=== PATIENT | female | born 1980 | race Caucasian/White ===

== ENCOUNTER 2017-08-09 04:16 | Inpatient (IN) | payer OTHER ==
[~2017-08-09] VITALS: Ht 165.1 cm; Wt 66.8 kg
[2017-08-09] MEDS ORDERED: ONDANSETRON 4 MG INJ IV STA (04:58)
[2017-08-09] MEDS ORDERED: morphine 4 MG/ML VIAL IV STA ×2 (04:58→08:26)
[2017-08-09] MEDS ORDERED: SOD CHLORIDE 0.9% 1,000 ML IV STA ×2 (04:58→06:56)
--- NOTE | 2017-08-09 05:21 | ERD ---
ER Documentation Chief Complaint Date/Time DATE: 08/09/17 TIME: 05:17 Chief Complaint SAMAN pelvic pain x 3 days. No vaginal bleeding/discharge HPI This is a 37-year-old female presenting to emergency department with pelvic pain 3 days. Patient has recent history of an ovarian torsion and had 1 of her fallopian tubes removed in February 2017. Patient states in April 2017 she had an infection of her incision and had to have an abscess drained surgically. Patient now is having severe pelvic pain. No vaginal bleeding or discharge. Patient has had nausea however no vomiting. Patient has had some diarrhea and constipation. Patient rates pain 7/10 to suprapubic area and states she feels "bloated." Patient denies fever or chills. Last menstrual period was last week. Patient had her surgery at [facility] and is supposed to follow-up with surgeon there. ROS All systems reviewed and are negative except as per history of present illness. Medications Home Meds Reported Medications Metformin Hcl* (Metformin Hcl*) 850 Mg Tablet, 850 MG PO WITH BREAKFAST DINNE, # 30 TAB 08/09/17 Allergies Allergies: Coded Allergies: No Known Allergy (Unverified , 08/09/17) PMhx/Soc ovarian torsion History of Surgery: Yes Physical Exam Vitals Vital Signs Date Time Temp Pulse Resp B/P Pulse Ox O2 Delivery O2 Flow Rate FiO2 08/09/17 10:50 89 18 122/92 99 Room Air 08/09/17 08:27 98.6 96 18 151/92 99 Room Air 08/09/17 04:30 98.0 122 18 163/88 98 Physical Exam Const: Alert, writhing in pain Head: Atraumatic Eyes: Normal Conjunctiva ENT: Normal External Ears, Nose and Mouth. Neck: Full range of motion..~ No meningismus. Resp: Clear to auscultation bilaterally Cardio: Regular rate and rhythm, no murmurs Abd: Soft, non distended. Normal bowel sounds, Suprapubic tenderness Skin: No petechiae or rashes Back: No midline or flank tenderness Ext: No cyanosis, or edema Neur: Awake and alert Psych: Normal Mood and Affect Result Diagram: 08/09/17 0539 08/09/17 0539 Results 24 hrs Laboratory Tests Test 08/09/17 05:15 08/09/17 05:39 08/09/17 07:18 08/09/17 08:38 Urine Color STRAW Urine Clarity CLEAR Urine pH 6.0 Urine Specific [place] 1.030 Urine Ketones NEGATIVEmg/dL Urine Nitrite NEGATIVEmg/dL Urine Bilirubin NEGATIVEmg/dL Urine Urobilinogen NEGATIVEmg/dL Urine Leukocyte Esterase NEGATIVELeu/ul Urine Microscopic RBC 8/HPF Urine Microscopic WBC 1/HPF Urine Hemoglobin 2+mg/dL Urine Glucose 3+mg/dL Urine Total Protein 2+mg/dl White Blood Count 9.610^3/ul Red Blood Count 4.2610^6/ul Hemoglobin 11.4g/dl Hematocrit 35.0% Mean Corpuscular Volume 82.2fl Mean Corpuscular Hemoglobin 26.8pg Mean Corpuscular Hemoglobin Concent 32.6g/dl Red Cell Distribution Width 11.9% Platelet Count 51241^3/UL Mean Platelet Volume 10.2fl Neutrophils % 78.7% Lymphocytes % 12.7% Monocytes % 6.0% Eosinophils % 1.4% Basophils % 0.5% Nucleated Red Blood Cells % 0.0/100WBC Neutrophils # (Manual) 7.510^3/ul Lymphocytes # 1.210^3/ul Monocytes # 0.610^3/ul Eosinophils # 0.110^3/ul Basophils # 0.110^3/ul Nucleated Red Blood Cells # 0.010^3/ul Sodium Level 135mmol/L Potassium Level 4.7mmol/L Chloride Level 98mmol/L Carbon Dioxide Level 26mmol/L Anion Gap 16 Blood Urea Nitrogen 29mg/dl Creatinine 1.00mg/dl Glucose Level 474mg/dl Calcium Level 9.9mg/dl Total Bilirubin 0.0mg/dl Direct Bilirubin 0.00mg/dl Indirect Bilirubin 0.0mg/dl Aspartate Amino Transf (AST/SGOT) 40IU/L Alanine Aminotransferase (ALT/SGPT) 44IU/L Alkaline Phosphatase 134IU/L Total Protein 7.7g/dl Albumin 3.9g/dl Globulin 3.80g/dl Albumin/Globulin Ratio 1.02 Lipase 158U/L Bedside Glucose 327mg/dL 378mg/dL Current Medications Medications (Trade) Dose Ordered Sig/Eliazar Route PRN Reason Start Time Stop Time Status Last Admin Dose Admin Sodium Chloride (NS) 1,000 ml @ 1,000 mls/hr Q1H STAT IV 08/09/17 04:58 08/09/17 05:57 DC 08/09/17 05:50 Morphine Sulfate (morphine) 4 mg ONCE STAT IV 08/09/17 04:58 08/09/17 05:01 DC 08/09/17 05:49 Ondansetron HCl 4 mg 4 mg ONCE STAT IV 08/09/17 04:58 08/09/17 05:01 DC 08/09/17 05:49 Sodium Chloride (NS) 1,000 ml @ 1,000 mls/hr Q1H STAT IV 08/09/17 06:56 08/09/17 07:55 DC 08/09/17 07:27 Insulin Human Regular 10 unit 10 unit ONCE ONCE SC 08/09/17 07:00 08/09/17 07:01 DC 08/09/17 07:38 Sodium Chloride (NS) 100 ml @ ud STK-MED ONCE .ROUTE 08/09/17 07:08 08/09/17 07:09 DC 08/09/17 07:53 Iohexol (Omnipaque 300mg/ ml) 150 ml STK-MED ONCE .ROUTE 08/09/17 07:08 08/09/17 07:09 DC 08/09/17 07:54 Morphine Sulfate (morphine) 4 mg ONCE STAT IV 08/09/17 08:26 08/09/17 08:28 DC 08/09/17 08:30 Ondansetron HCl (Zofran Inj) 4 mg BRIDGE ORDER PRN IV NAUSEA AND/OR VOMITING 08/09/17 11:00 08/09/17 12:17 DC Acetaminophen (Tylenol Tab) 650 mg ER BRIDGE PRN PO MILD PAIN/FEVER 08/09/17 11:00 08/09/17 12:17 DC Procedures/MDM MDM: This is a 37-year-old female presenting to emergency department with pelvic pain for the past 3 days. Patient has history of ovarian torsion and removal of fallopian tube in February 2017. Patient states she is having similar pain. Patient denies fever or chills. Patient rates pain 7/10 to suprapubic region. IV access obtained and labs drawn. Patient given morphine 4 mg and Zofran 4 mg IV. Patient given 1 L IV fluid bolus of normal saline. Patient signed out to Kin Sexton PA-C pending CT, ultrasound and lab results. Departure Diagnosis: Primary Impression: Acute pain in female pelvis Condition: Stable FELICE,LAYO R. PROMOTIONAL ADVERTISING ASSISTANT Aug 09, 2017 05:20
[2017-08-09 06:03] LABS: BASOPHIL # 0.1 10^3/ul (0.0-0.1); BASOPHILS % 0.5 % (0.0-2.0); EOSINOPHILS # 0.1 10^3/ul (0.0-0.5); EOSINOPHILS % 1.4 % (0.0-7.0); HEMOGLOBIN 11.4 g/dl (12.0-16.0); LYMPHOCYTES # 1.2 10^3/ul (0.8-2.9); LYMPHOCYTES % 12.7 % (15.0-51.0); MEAN CORPUSCULAR HEMOGLOBIN 26.8 pg (29.0-33.0); MEAN CORPUSCULAR HGB CONC 32.6 g/dl (32.0-37.0); MEAN CORPUSCULAR VOLUME 82.2 fl (82.0-101.0); MEAN PLATELET VOLUME 10.2 fl (7.4-10.4); MONOCYTE # 0.6 10^3/ul (0.3-0.9); NEUTROPHILS % 78.7 % (39.0-77.0); PLATELET COUNT 433 10^3/UL (140-415); RED BLOOD COUNT 4.26 10^6/ul (4.20-5.40); RED CELL DISTRIBUTION WIDTH 11.9 % (11.5-14.5); WHITE BLOOD COUNT 9.6 10^3/ul (4.8-10.8)
[2017-08-09 06:16] LABS: ADD UMIC YES; UR ASCORBIC ACID NEGATIVE (NEGATIVE); UR BILIRUBIN (Dip) NEGATIVE (NEGATIVE); UR BLOOD (Dip) 2+ mg/dL (NEGATIVE); UR CLARITY CLEAR (CLEAR); UR COLOR STRAW (YELLOW); UR GLUCOSE (Dip) 3+ mg/dL (NEGATIVE); UR KETONES (Dip) NEGATIVE (NEGATIVE); UR LEUKOCYTE ESTERASE (Dip) NEGATIVE Leu/ul (NEGATIVE); UR NITRITE (Dip) NEGATIVE (NEGATIVE); UR RBC 8 /HPF (0-5); UR TOTAL PROTEIN (Dip) 2+ mg/dl (NEGATIVE); UR UROBILINOGEN (Dip) NEGATIVE (NEGATIVE)
[2017-08-09 06:36] LABS: ALBUMIN 3.9 g/dl (3.3-4.9); ALBUMIN/GLOBULIN RATIO 1.02; CALCIUM 9.9 mg/dl (8.4-10.2); POTASSIUM 4.7 mmol/L (3.5-5.1); TOTAL PROTEIN 7.7 g/dl (6.1-8.1)
--- NOTE | 2017-08-09 06:39 | RADRPT ---
PROCEDURE: US Pelvis CLINICAL INDICATION: Pelvic pain. TECHNIQUE: Sonographic evaluation of the pelvis was performed utilizing both transabdominal and tr ansvaginal technique. Curved array transabdominal transducer technique as well as a high frequency endovaginal probe was utilized. Images were reviewed on the high-resolution PACS workstation. COMPARISON: No prior studies are available for comparison. FINDINGS: The uterus is normal in size, echogenicity, and morphology measuring 8.3 x 4.3 x 5.5 cm in dimension . The uterus is anteverted in normal position. The endometrium is normal for a menstrual age fema le measuring 11 mm in diameter. The right ovary measures 4.4 x 2.3 x 2.7 cm in dimension and demonstrates normal Doppler flow. There is 3.1 cm right paraovarian cyst. There is a fluid-filled distended tubular structure within the ri ght adnexa. The left ovary is not visualized. There is no significant free fluid in the pelvis. IMPRESSION: 1. Distended tubular structure within the right adnexa may reflect hydro or pyosalpinx. Clinical co rrelation required. 2. 3.1 cm right paraovarian cyst. 3. The left ovary is not visualized. 4. Unremarkable appearance of the uterus. RPTAT: HH .Daniela Ramires MD, Date Time Electronically viewed and signed by .Daniela Ramires MD, on 08/09/2017 06:38 .G/
[2017-08-09] MEDS ORDERED: INSULIN REGULAR, HUMAN 100 UNIT/1 ML 3ML VIAL SC ONE (07:00)
[2017-08-09] MEDS ORDERED: SOD CHLORIDE 0.9% 100 ML ONE (07:08)
[2017-08-09] MEDS ORDERED: IOHEXOL 300MG/ML 150 ML BTL ONE (07:08)
--- NOTE | 2017-08-09 08:04 | RADRPT ---
PROCEDURE: CT Abdomen and Pelvis with contrast. CLINICAL INDICATION: pelvic pain, hx of ovarian torsion TECHNIQUE: Routine abdominopelvic CT was performed following administration of intravenous contras t and reformatted in the axial, coronal, sagittal planes. Intravenous contrast: 85 cc of Omnipaque-300. Radiation dose: CTDIvol (mGy) = 6.4; total DLP (mGy-cm) = 377 One or more of the following radiation dose techniques were used: -Automated exposure control. -Adjust of the mA and/or kV according to patient size. -Use of iterative reconstruction technique. COMPARISON: Ascending ultrasound. FINDINGS: There is a rim enhancing loculated fluid collection identified in the anterior upper pelvis (6.7 cm) , demonstrating prominent surrounding inflammation. This finding is associated with a linear tract t hat is contiguous with the umbilicus. There is a tubular structure identified in the right adnexa, compatible with hydrosalpinx. Multiple cysts/follicles are identified in the bilateral ovaries. Liver, gallbladder, biliary system, pancreas, adrenal glands, and spleen are normal. Kidneys demonstrate symmetric enhanced without hydronephrosis or nephrolithiasis. There is a moderate amount of stool in the colon. Small bowel loops are normal in caliber and mural thickness. The No lymphadenopathy. IMPRESSION: Lobulated enhancing fluid collections identified superior to the urinary bladder, concerning for inf ection/abscess within a urachal remnant. Recommend aspiration/drainage under CT guidance. Right sided hydrosalpinx. RPTAT: EE .Hermes Torrez MD, MD Date Time Electronically viewed and signed by .Hermes Torrez MD, on 08/09/2017 08:09 .C/
--- NOTE | 2017-08-09 08:24 | QN ---
Documentation Comment S: This patient was brought to my attention by the PA. Briefly, this is a This is a 37-year-old female presenting to emergency department with pelvic pain 3 days. Patient has recent history of an ovarian torsion and had 1 of her fallopian tubes removed in February 2017. Patient states in April 2017 she had an infection of her incision and had to have an abscess drained surgically. Patient now is having severe pelvic pain. No vaginal bleeding or discharge. Patient has had nausea however no vomiting. Patient has had some diarrhea and constipation. Patient rates pain 7/10 to suprapubic area and states she feels "bloated." Patient denies fever chills. Last menstrual period was last week. Patient had her surgery at [facility] and is supposed to follow-up with surgeon there. The patient's review of systems, past medical history, past surgical history, medications are reviewed and are in the PA note. O: Patient is in mild distress secondary to pelvic pain, well-developed, well- nourished Normocephalic, atraumatic Moist mucous membranes Regular rate and rhythm, no murmurs, no rubs, no gallops Lungs are clear to auscultation bilaterally Significant tenderness to palpation of the lower quadrants of the abdomen, voluntary guarding, nondistended No focal deficits A/P: The patient's presenting with signs concerning for a recurrent abscess given her significant pain and her presentation. The patient's blood work was obtained and reviewed. The patient does not have leukocytosis and she is afebrile. However, if this is an abscess formation, it could be localized without a systemic response at this time. The patient does have mild anemia does not need to be emergently treated. The patient's CMP was unremarkable except for elevated glucose. The patient's initial sugar was over 400. She was given IV fluids in addition to 10 units of insulin. Unfortunately, her partner gave her burrito to eat, so her sugar has not quite come down. It is currently less than 400. We will continue IV fluids. She will be n.p.o. from here on out. The patient's urinalysis shows mild hematuria and glucose. There are no ketones. The patient has no anion gap. I do not suspect DKA. There is no convincing evidence of a UTI as etiology of her symptoms. The patient had a pelvic ultrasound that demonstrated the following: Pelvic US IMPRESSION: Distended tubular structure within the right adnexa may reflect hydro or pyosalpinx. Clinical correlation required. 3.1 cm right paraovarian cyst. The left ovary is not visualized. Unremarkable appearance of the uterus. Electronically viewed and signed by .Daniela Ramires MD, MD on 08/09/2017 06 :38 The patient had a subsequent CT scan that demonstrated the following: CT Abd/Pelvis IMPRESSION: Lobulated enhancing fluid collections identified superior to the urinary bladder, concerning for infection/abscess within a urachal remnant. Recommend aspiration/drainage under CT guidance. Right sided hydrosalpinx. Electronically viewed and signed by .Hermes Torrez MD, MD on 08/09/2017 08:09 The patient was given morphine in the emergency department for pain control. Given concerns of abscess formation, the patient will require admission to the hospital. She will likely require gynecologic consultation. She will be started on ciprofloxacin and Flagyl. CARLOS CARDOSO MD Aug 09, 2017 08:24
[2017-08-09 08:27] VITALS: TEMP 98.6
[2017-08-09] MEDS ORDERED: METF850T PO (08:58)
[2017-08-09] MEDS ORDERED: ACETAMINOPHEN 325 MG TAB PO PRN ×2 (11:00→12:30)
[2017-08-09] MEDS ORDERED: ONDANSETRON 4 MG INJ IV PRN (11:00)
[2017-08-09 11:45] VITALS: BP 116/73; PULSE 92; RESP 16
[2017-08-09 11:51] VITALS: Ht 165.1 cm; Wt 66.8 kg
[2017-08-09] MEDS ORDERED: NACL 0.9% 3 ML SYG IV SCH (12:30)
[2017-08-09] MEDS ORDERED: GLUCOSE GEL 15 GRAM TUBE PO PRN ×2 (12:30)
[2017-08-09] MEDS ORDERED: GLUCOSE GEL 15 GRAM TUBE BUCCAL PRN (12:30)
[2017-08-09] MEDS ORDERED: LORAZEPAM 2 MG INJ IV PRN (12:30)
[2017-08-09] MEDS ORDERED: GLUCAGON 1 MG INJ IM PRN (12:30)
[2017-08-09] MEDS ORDERED: hydrALAzine 20 MG INJ IV PRN (12:30)
[2017-08-09] MEDS ORDERED: NA PHOSPHATE/BIPHOS 133 ML ENEMA PR PRN (12:30)
[2017-08-09] MEDS ORDERED: ALBUTEROL/IPRATROPIUM (NEB) 3 ML AMP HHN PRN (12:30)
[2017-08-09] MEDS ORDERED: DOCUSATE SODIUM 100 MG CAP PO PRN (12:30)
[2017-08-09] MEDS ORDERED: NITROGLYCERIN (SL) 0.4 MG TAB SL PRN (12:30)
[2017-08-09] MEDS ORDERED: DEXTROSE 50% 50 ML SYRINGE IV PRN ×2 (12:30)
[2017-08-09] MEDS ORDERED: MAGNESIUM HYDROXIDE 30ML CUP PO PRN (12:30)
[2017-08-09] MEDS: SOD CHLORIDE 0.9% 1,000 ML IV SCH ×2 (13:06→22:30)
[2017-08-09] MEDS: PIPER-TAZO 3.375 GM IV (PMX) 100 ML IVPB SCH ×2 (13:06→17:08)
[2017-08-09] MEDS: PANTOPRAZOLE (EC) 40 MG TAB PO SCH (13:06)
[2017-08-09] MEDS: HEPARIN 5,000 UNIT/0.5 ML VIAL SC SCH ×2 (13:13→19:47)
[2017-08-09] MEDS: HYDROCODONE/APAP (5/325) TAB PO PRN ×2 (13:16→21:05)
[2017-08-09] MEDS: INSULIN ASPART [NOVOLOG] 3 ML PEN SC SCH ×3 (13:25→21:09)
--- NOTE | 2017-08-09 13:47 | HP ---
DATE OF ADMISSION: 08/09/2017 CHIEF COMPLAINT: This is a 37-year-old female with a chief complain of pelvic pain. HISTORY OF PRESENT ILLNESS: A 37-year-old female, past medical history of diabetes and prior ovarian torsion with fallopian tube removal earlier this year, as well as incision infection in April, status post I and D at [facility], who presents with pelvic pain occurring for the last 3 days. She has also had nausea symptoms. Denies any fevers or chills. No diarrhea. No constipation. No upper or lower GI bleeding. No vaginal discharge. No headaches or dizziness. No loss of consciousness. Apparently again she had a history of an ovarian torsion, had one of her fallopian tubes removed in February [address] [facility]. In April 2017 she had an infection of her incision and had to have an abscess drained surgically at [facility] at that time. She has been doing well again until presenting with the last 2 days of abdominal pain. Her white count was normal. Today no fevers but on her, imaging studies today, her CT abdomen and pelvis does show lobulated enhancing fluid collections identified superior to the urinary bladder, concerning for infection and abscess with within a urachal remnant. Recommend aspiration or drainage under CT guidance. Also right-sided hydrosalpinx and then there was this pelvic ultrasound that shows distended tubular structure within the right adnexa that may reflect hydro or pyosalpinx and there is a 3.1. Cm right paraovarian cyst. The OBGYN doctor was called to come evaluate the patient as well. PAST MEDICAL HISTORY: As above. ALLERGIES: NO KNOWN DRUG ALLERGIES. MEDICATIONS: Home medicines: Metformin 100 mg b.i.d.. PAST SURGICAL HISTORY: Fallopian tube removal surgery in February 2017 secondary to ovarian torsion. FAMILY HISTORY: Father has diabetes. SOCIAL HISTORY: She smokes a few cigarettes every day for the last 18 years. No IV drug abuse. No alcohol use. PHYSICAL EXAMINATION: VITAL SIGNS: T-max 98.6, pulse 89, 122, respirations 18, blood pressure is 163-122 systolic over 80-90s diastolic, satting 99 percent on room air. GENERAL: Patient lying in bed, complaining of right sided flank pain. Otherwise, no acute distress. HEENT: Pupils equal, round, and react to light. Neck is supple. Intact. NECK: Supple. No thyromegaly. LUNGS: Clear to auscultation bilaterally. CARDIOVASCULAR: S1, S2. No murmurs, rubs or gallops. ABDOMEN: Tender to palpation, right-sided flank. No rebound or guarding. Normal bowel sounds otherwise. MUSCULOSKELETAL: No lower extremity edema bilaterally. NEUROLOGIC: No focal deficits. LABORATORY: CBC is normal. Sodium 135, potassium 4.7, chloride 98, CO2 26, BUN 29, creatinine 1.0, glucose 474. LFTs are normal. Lipase is normal. UA shows negative nitrites, negative leukocyte esterase, but there is 2+ hemoglobin and we mentioned the imaging results above in the history of present illness. ASSESSMENT/PLAN: A 37-year-old, with pelvic pain for 3 days with findings of right adnexa hydrosalpinx and possible abscess and ovarian cyst. 1. Pelvic pain. Likely secondary to right adnexa hydrosalpinx or pyosalpinx. 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 Counseled on broad-spectrum antibiotics, IV fluids, antiemetics and pain control. Medications Tylenol p.r.n. pain and fevers. The patient may benefit from CT-guided drainage of this possible abscess versus just medical treatment at this time. Check A1c and TSH and lipid panel as well. 2. Diabetes. Put on sliding scale. Check A1c. 3. Gastrointestinal prophylaxis, proton pump inhibitor. 4. Deep vein thrombosis prophylaxis. Heparin subcu. Dictated By: Gopi Putnam MD /leah/ /Document#: [id number]
--- NOTE | 2017-08-09 13:47 | CONS ---
Date/Time of Note Date/Time of Note DATE: 08/09/17 TIME: 13:47 Consultation Date/Type/Reason Admit Date/Time Aug 09, 2017 at 11:40 Social History Smoking Status: Current every day smoker Exam/Review of Systems Vital Signs Vitals Vital Signs Date Time Temp Pulse Resp B/P Pulse Ox O2 Delivery O2 Flow Rate FiO2 08/09/17 10:50 89 18 122/92 99 Room Air 08/09/17 08:27 98.6 Intake and Output 08/08/17 08/08/17 08/09/17 15:00 23:00 07:00 Intake Total 1000 ml Balance 1000 ml Results Result Diagram: 08/09/17 0539 08/09/17 0539 Results 24 hrs Laboratory Tests Test 08/09/17 05:15 08/09/17 05:39 08/09/17 07:18 08/09/17 08:38 Urine Color STRAW Urine Clarity CLEAR Urine pH 6.0 Urine Specific [place] 1.030 Urine Ketones NEGATIVE Urine Nitrite NEGATIVE Urine Bilirubin NEGATIVE Urine Urobilinogen NEGATIVE Urine Leukocyte Esterase NEGATIVE Urine Microscopic RBC 8 H Urine Microscopic WBC 1 Urine Hemoglobin 2+ H Urine Glucose 3+ H Urine Total Protein 2+ H White Blood Count 9.6 Red Blood Count 4.26 Hemoglobin 11.4 L Hematocrit 35.0 L Mean Corpuscular Volume 82.2 Mean Corpuscular Hemoglobin 26.8 L Mean Corpuscular Hemoglobin Concent 32.6 Red Cell Distribution Width 11.9 Platelet Count 433 H Mean Platelet Volume 10.2 Neutrophils % 78.7 H Lymphocytes % 12.7 L Monocytes % 6.0 Eosinophils % 1.4 Basophils % 0.5 Nucleated Red Blood Cells % 0.0 Neutrophils # (Manual) 7.5 Lymphocytes # 1.2 Monocytes # 0.6 Eosinophils # 0.1 Basophils # 0.1 Nucleated Red Blood Cells # 0.0 Sodium Level 135 Potassium Level 4.7 Chloride Level 98 Carbon Dioxide Level 26 Anion Gap 16 Blood Urea Nitrogen 29 H Creatinine 1.00 Glucose Level 474 *H Calcium Level 9.9 Total Bilirubin 0.0 L Direct Bilirubin 0.00 Indirect Bilirubin 0.0 Aspartate Amino Transf (AST/SGOT) 40 Alanine Aminotransferase (ALT/SGPT) 44 Alkaline Phosphatase 134 H Total Protein 7.7 Albumin 3.9 Globulin 3.80 H Albumin/Globulin Ratio 1.02 Lipase 158 Bedside Glucose 327 H 378 H Test 08/09/17 13:18 Bedside Glucose 307 H Medications Medications Current Medications Ondansetron HCl (Zofran Inj) 4 mg Q6H PRN IV NAUSEA AND/OR VOMITING; Start 10/15 at 12:30 Acetaminophen (Tylenol Tab) 650 mg Q6H PRN PO PAIN LEVEL 1-3 OR FEVER; Start at 12:30 Acetaminophen/ Hydrocodone Bitart ([place] (5/325)) 1 tab Q6H PRN PO MODERATE PAIN LEVEL 4-6 Last administered on 08/09/17 13:16; Admin Dose 1 TAB; Start 10/15 at 12:30 Morphine Sulfate (morphine) 2 mg Q4H PRN IV SEVERE PAIN LEVEL 7-10; Start 08/09 at 12:30 Docusate Sodium (Colace) 100 mg Q12H PRN PO CONSTIPATION; Start 08/09/17 at 12: 30 Magnesium Hydroxide (Milk Of Mag) 30 ml DAILY PRN PO CONSTIPATION; Start at 12:30 Sodium Biphosphate/ Sodium Phosphate (Fleet Enema) 133 ml DAILY PRN [place] CONSTIPATION; Start 08/09/17 at 12:30 Pantoprazole (Protonix Tab) 40 mg DAILY@06 PO Last administered on 08/09/17 13 :06; Admin Dose 40 MG; Start 08/09/17 at 12:30 Heparin Sodium (Porcine) (Heparin (5000 Units/0.5 ml)) 5,000 unit Q12 SC Last administered on 08/09/17 13:13; Admin Dose 5,000 UNIT; Start 08/09/17 at 12:30 Lorazepam 0.5 mg 0.5 mg Q6H PRN IV ANXIETY; Start 08/09/17 at 12:30 Sodium Chloride 1,000 ml @ 100 mls/hr Q10H IV Last administered on 08/09/17 13:06; Admin Dose 100 MLS/HR; Start 08/09/17 at 12:30 Piperacillin Sod/ Tazobactam Sod (Zosyn 3.375gm/ 100 ml (Pmx)) 100 ml @ 200 mls /hr Q6 IVPB Last administered on 08/09/17 13:06; Admin Dose 200 MLS/HR; Start 08/09/17 at 12:30 Hydralazine HCl (Apresoline) 10 mg Q6H PRN IV SBP GREATER THAN 180; Start 08/09 at 12:30 Nitroglycerin (Nitroglycerin (Sl Tab) 0.4 Mg) 1 tab Q5M PRN SL ANGINA; Start at 12:30 Insulin Aspart (Novolog Insulin Pen) NOVOLOG *MODERATE* ALGORI... Q4 SC Last administered on 08/09/17t 13:25; Admin Dose 10 UNIT; Start 08/09/17 at 13:00 Miscellaneous Information 1 ea NOTE XX ; Start 08/09/17 at 12:30 Glucose (Glutose) 15 gm Q15M PRN PO DECREASED GLUCOSE; Start 08/09/17 at 12:30 Glucose (Glutose) 22.5 gm Q15M PRN PO DECREASED GLUCOSE; Start 08/09/17 at 12: 30 Dextrose (D50w Syringe) 25 ml Q15M PRN IV DECREASED GLUCOSE; Start 08/09/17 at 12:30 Dextrose (D50w Syringe) 50 ml Q15M PRN IV DECREASED GLUCOSE; Start 08/09/17 at 12:30 Glucagon (Glucagen) 1 mg Q15M PRN IM DECREASED GLUCOSE; Start 08/09/17 at 12:30 Glucose (Glutose) 15 gm Q15M PRN BUCCAL DECREASED GLUCOSE; Start 08/09/17 at 12 :30 CURT MCGOWAN NP Aug 09, 2017 13:47
--- NOTE | 2017-08-09 14:22 | QN ---
Documentation Comment 37 s/p laparoscopic salpingectomy for ovarian torsion per patient and s/p drainage of pelvic abcess who returns with abd pain vss exam wnl wound CDI abd soft no rebound no gaurding CT 6 cm possible pelvic abscess a/p pelvic abscess post laparoscopy-ct drainage and IV abx poorly controlled DM will follow MERON MCDANIELS MD Aug 09, 2017 14:22
[2017-08-09 15:11] LABS: ADD UMIC YES; UR ASCORBIC ACID NEGATIVE (NEGATIVE); UR BILIRUBIN (Dip) NEGATIVE (NEGATIVE); UR BLOOD (Dip) 1+ mg/dL (NEGATIVE); UR CLARITY CLEAR (CLEAR); UR COLOR STRAW (YELLOW); UR GLUCOSE (Dip) 3+ mg/dL (NEGATIVE); UR KETONES (Dip) NEGATIVE (NEGATIVE); UR LEUKOCYTE ESTERASE (Dip) NEGATIVE Leu/ul (NEGATIVE); UR NITRITE (Dip) NEGATIVE (NEGATIVE); UR RBC 4 /HPF (0-5); UR SQUAMOUS EPITHELIAL CELL FEW /HPF (FEW); UR TOTAL PROTEIN (Dip) 1+ mg/dl (NEGATIVE); UR UROBILINOGEN (Dip) NEGATIVE (NEGATIVE)
[2017-08-09 15:30] LABS: INR 0.91; PROTIME 12.3 Sec (12.2-14.2)
[2017-08-09 15:31] LABS: PARTIAL THROMBOPLASTIN TIME 33.6 Sec (25.0-35.0)
[2017-08-09 19:37] VITALS: BP 99/61; RESP 20
[2017-08-09] MEDS: ONDANSETRON 4 MG INJ IV PRN (21:05)
[2017-08-10] VITALS (7 sets, daily range): BP systolic 96–111; BP diastolic 54–68; RESP 18–20
[2017-08-10] MEDS: PIPER-TAZO 3.375 GM IV (PMX) 100 ML IVPB SCH ×4 (01:05→17:24)
[2017-08-10] MEDS: SOD CHLORIDE 0.9% 1,000 ML IV SCH ×2 (01:06→17:14)
[2017-08-10] MEDS: INSULIN ASPART [NOVOLOG] 3 ML PEN SC SCH ×6 (01:10→21:00)
[2017-08-10] MEDS ORDERED: ACCU-CHEK XX SCH (02:00)
[2017-08-10] MEDS: morphine 2 MG INJ IV PRN ×2 (03:13→22:45)
[2017-08-10] MEDS: ONDANSETRON 4 MG INJ IV PRN (03:13)
[2017-08-10] MEDS: HYDROCODONE/APAP (5/325) TAB PO PRN ×2 (03:13→19:49)
[2017-08-10 05:53] LABS: BASOPHIL # 0.1 10^3/ul (0.0-0.1); BASOPHILS % 0.6 % (0.0-2.0); EOSINOPHILS # 0.2 10^3/ul (0.0-0.5); EOSINOPHILS % 2.6 % (0.0-7.0); HEMATOCRIT 30.6 % (37.0-47.0); HEMOGLOBIN 9.7 g/dl (12.0-16.0); LYMPHOCYTES # 1.3 10^3/ul (0.8-2.9); LYMPHOCYTES % 14.1 % (15.0-51.0); MEAN CORPUSCULAR HEMOGLOBIN 26.6 pg (29.0-33.0); MEAN CORPUSCULAR HGB CONC 31.7 g/dl (32.0-37.0); MEAN CORPUSCULAR VOLUME 84.1 fl (82.0-101.0); MEAN PLATELET VOLUME 9.7 fl (7.4-10.4); MONOCYTE # 0.7 10^3/ul (0.3-0.9); MONOCYTES % 7.6 % (0.0-11.0); NEUTROPHILS % 74.8 % (39.0-77.0); PLATELET COUNT 389 10^3/UL (140-415); RED BLOOD COUNT 3.64 10^6/ul (4.20-5.40); RED CELL DISTRIBUTION WIDTH 11.9 % (11.5-14.5); WHITE BLOOD COUNT 8.9 10^3/ul (4.8-10.8)
[2017-08-10] MEDS: PANTOPRAZOLE (EC) 40 MG TAB PO SCH (06:10)
[2017-08-10 06:20] LABS: CALCIUM 8.5 mg/dl (8.4-10.2); CHOL/HDL RATIO 3.2 RATIO; CREATININE 0.77 mg/dl (0.44-1.00); MAGNESIUM 1.5 mg/dl (1.7-2.5); PHOSPHORUS 3.2 mg/dl (2.5-4.9); POTASSIUM 4.2 mmol/L (3.5-5.1)
[2017-08-10 06:39] LABS: THYROID STIMULATING HORMONE 0.797 MIU/L (0.465-4.680)
[2017-08-10] MEDS: HEPARIN 5,000 UNIT/0.5 ML VIAL SC SCH ×2 (07:25→22:57)
--- NOTE | 2017-08-10 11:32 | PN ---
Date/Time of Note Date/Time of Note DATE: 08/10/17 TIME: 11:29 Assessment/Plan VTE Prophylaxis VTE Prophylaxis Intervention: heparin Lines/Catheters IV C[facility] Type ([facility] Peripheral IV Assessment/Plan Chief Complaint/Hosp Course ASSESSMENT/PLAN: A 37-year-old, with pelvic pain for 3 days with findings of right adnexa hydrosalpinx and possible abscess and ovarian cyst. 1. Pelvic pain. Likely secondary to right adnexa hydrosalpinx or pyosalpinx. -Follow up REAL ESTATE TEACHER infectious disease recommendations, including possible procedure later today -Continue broad-spectrum antibiotics, IV fluids, antiemetics and pain control. - Tylenol p.r.n. pain and fevers. The patient may benefit from CT- guided drainage of this possible abscess versus just medical treatment at this time. 2. Diabetes-sugars improved, A1c equals 12.3, continue moderate sliding scale , add Lantus 3. Gastrointestinal prophylaxis, proton pump inhibitor. 4. Deep vein thrombosis prophylaxis. Heparin subcu. Problems: Subjective 24 Hr Interval Summary Free Text/Dictation No acute events overnight, awaiting possible procedure by REAL ESTATE TEACHER team later today. Exam/Review of Systems Vital Signs Vitals Vital Signs Date Time Temp Pulse Resp B/P Pulse Ox O2 Delivery O2 Flow Rate FiO2 08/10/17 07:53 98.8 91 18 103/60 97 08/09/17 11:45 Room Air Intake and Output 08/09/17 08/09/17 08/10/17 15:00 23:00 07:00 Intake Total 100 ml 450 ml 480 ml Output Total 450 ml Balance 100 ml 0 ml 480 ml Exam GENERAL: Patient lying in bed, otherwise, no acute distress. HEENT: Pupils equal, round, and react to light. Neck is supple. Intact. NECK: Supple. No thyromegaly. LUNGS: Clear to auscultation bilaterally. CARDIOVASCULAR: S1, S2. No murmurs, rubs or gallops. ABDOMEN: some tenderness to palpation, right-sided flank. No rebound or guarding. Normal bowel sounds otherwise. MUSCULOSKELETAL: No lower extremity edema bilaterally. NEUROLOGIC: No focal deficits. Results Result Diagram: 08/10/17 0509 08/10/17 0509 Results 24 hrs Laboratory Tests Test 08/09/17 13:18 08/09/17 14:30 08/09/17 14:44 08/09/17 17:07 Bedside Glucose 307 H 119 Urine Color STRAW Urine Clarity CLEAR Urine pH 5.0 Urine Specific [place] 1.030 Urine Ketones NEGATIVE Urine Nitrite NEGATIVE Urine Bilirubin NEGATIVE Urine Urobilinogen NEGATIVE Urine Leukocyte Esterase NEGATIVE Urine Microscopic RBC 4 Urine Microscopic WBC 2 Urine Squamous Epithelial Cells FEW Urine Hemoglobin 1+ H Urine Glucose 3+ H Urine Total Protein 1+ H Prothrombin Time 12.3 Prothrombin Time Ratio 1.0 INR International Normalized Ratio 0.91 Activated Partial Thromboplast Time 33.6 Free Thyroxine 1.55 Test 08/09/17 21:04 08/10/17 01:07 08/10/17 04:23 08/10/17 05:09 Bedside Glucose 163 141 135 White Blood Count 8.9 Red Blood Count 3.64 L Hemoglobin 9.7 L Hematocrit 30.6 L Mean Corpuscular Volume 84.1 Mean Corpuscular Hemoglobin 26.6 L Mean Corpuscular Hemoglobin Concent 31.7 L Red Cell Distribution Width 11.9 Platelet Count 389 Mean Platelet Volume 9.7 Neutrophils % 74.8 Lymphocytes % 14.1 L Monocytes % 7.6 Eosinophils % 2.6 Basophils % 0.6 Nucleated Red Blood Cells % 0.0 Neutrophils # (Manual) 6.6 Lymphocytes # 1.3 Monocytes # 0.7 Eosinophils # 0.2 Basophils # 0.1 Nucleated Red Blood Cells # 0.0 Sodium Level 135 Potassium Level 4.2 Chloride Level 105 Carbon Dioxide Level 25 Anion Gap 9 # Blood Urea Nitrogen 14 # Creatinine 0.77 Glucose Level 138 # Hemoglobin A1c 12.3 H Calcium Level 8.5 Phosphorus Level 3.2 Magnesium Level 1.5 L Triglycerides Level 110 Cholesterol Level 130 LDL Cholesterol, Calculated 68 HDL Cholesterol 40 Cholesterol/HDL Ratio 3.2 Thyroid Stimulating Hormone (TSH) 0.797 Test 08/10/17 08:07 Bedside Glucose 150 Medications Medications Current Medications Ondansetron HCl (Zofran Inj) 4 mg Q6H PRN IV NAUSEA AND/OR VOMITING Last administered on 08/10/17t 03:13; Admin Dose 4 MG; Start 08/09/17 at 12:30 Acetaminophen (Tylenol Tab) 650 mg Q6H PRN PO PAIN LEVEL 1-3 OR FEVER; Start at 12:30 Acetaminophen/ Hydrocodone Bitart ([place] (5/325)) 1 tab Q6H PRN PO MODERATE PAIN LEVEL 4-6 Last administered on 08/10/17 03:13; Admin Dose 1 TAB; Start 10/15 at 12:30 Morphine Sulfate (morphine) 2 mg Q4H PRN IV SEVERE PAIN LEVEL 7-10 Last administered on 08/10/17 03:13; Admin Dose 2 MG; Start 08/09/17 at 12:30 Docusate Sodium (Colace) 100 mg Q12H PRN PO CONSTIPATION; Start 08/09/17 at 12: 30 Magnesium Hydroxide (Milk Of Mag) 30 ml DAILY PRN PO CONSTIPATION; Start at 12:30 Sodium Biphosphate/ Sodium Phosphate (Fleet Enema) 133 ml DAILY PRN [place] CONSTIPATION; Start 08/09/17 at 12:30 Pantoprazole (Protonix Tab) 40 mg DAILY@06 PO Last administered on 08/10/17 06 :10; Admin Dose 40 MG; Start 08/09/17 at 12:30 Heparin Sodium (Porcine) (Heparin (5000 Units/0.5 ml)) 5,000 unit Q12 SC Last administered on 08/09/17 13:13; Admin Dose 5,000 UNIT; Start 08/09/17 at 12:30 Lorazepam 0.5 mg 0.5 mg Q6H PRN IV ANXIETY; Start 08/09/17 at 12:30 Sodium Chloride 1,000 ml @ 100 mls/hr Q10H IV Last administered on 08/10/17 01:06; Admin Dose 100 MLS/HR; Start 08/09/17 at 12:30 Piperacillin Sod/ Tazobactam Sod (Zosyn 3.375gm/ 100 ml (Pmx)) 100 ml @ 200 mls /hr Q6 IVPB Last administered on 08/10/17 06:11; Admin Dose 200 MLS/HR; Start 08/09/17 at 12:30 Hydralazine HCl (Apresoline) 10 mg Q6H PRN IV SBP GREATER THAN 180; Start 08/09 at 12:30 Nitroglycerin (Nitroglycerin (Sl Tab) 0.4 Mg) 1 tab Q5M PRN SL ANGINA; Start at 12:30 Insulin Aspart (Novolog Insulin Pen) NOVOLOG *MODERATE* ALGORI... Q4 SC Last administered on 08/10/17 08:13; Admin Dose 2 UNIT; Start 08/09/17 at 13:00 Miscellaneous Information 1 ea NOTE XX ; Start 08/09/17 at 12:30 Glucose (Glutose) 15 gm Q15M PRN PO DECREASED GLUCOSE; Start 08/09/17 at 12:30 Glucose (Glutose) 22.5 gm Q15M PRN PO DECREASED GLUCOSE; Start 08/09/17 at 12: 30 Dextrose (D50w Syringe) 25 ml Q15M PRN IV DECREASED GLUCOSE; Start 08/09/17 at 12:30 Dextrose (D50w Syringe) 50 ml Q15M PRN IV DECREASED GLUCOSE; Start 08/09/17 at 12:30 Glucagon (Glucagen) 1 mg Q15M PRN IM DECREASED GLUCOSE; Start 08/09/17 at 12:30 Glucose (Glutose) 15 gm Q15M PRN BUCCAL DECREASED GLUCOSE; Start 08/09/17 at 12 :30 Insulin Glargine (Lantus) 10 unit DAILY@20 SC ; Start 08/10/17 at 20:00; Status NANCY DOWNEY Aug 10, 2017 11:32
[2017-08-10] MEDS ORDERED: MAGNESIUM SULFATE 2 GM/50 ML 50 ML IVPB SCH (13:00)
[2017-08-10] MEDS ORDERED: FENTAnyl 50 MCG/ML VIAL ONE (14:34)
[2017-08-10] MEDS ORDERED: LIDOCAINE 1% (MDV) 20 ML INJ ONE (14:34)
[2017-08-10] MEDS ORDERED: DIPHENHYDRAMINE 50 MG INJ ONE (14:35)
--- NOTE | 2017-08-10 15:45 | RADRPT ---
PROCEDURE: CT guided pelvic abscess drainage. CLINICAL INDICATION: Pelvic abscess. TECHNIQUE: Informed consent was obtained. The procedure, risks, benefits, complications and alternatives were explained to the patient or the patient's family. Risks including bleeding and infection were explai carol. The patient or the patient's family understood and was willing to proceed. A procedural pause was performed. The patient's name, date of , and procedure to be performed were verified. One or more of the following dose reduction techniques were used: Automated exposure control, adjustmen t of the mA and/or kV according to patient size, use of iterative reconstruction technique. Using local anesthetic, sterile technique and CT guidance, a 19-gauge Yueh needle was advanced into the fluid collection in the anterior midline pelvis. CT scan was performed confirming position. Pu rulent fluid was also aspirated confirming position. The needle from the Yueh catheter was removed, leaving the Yueh catheter in place within the fluid collection. A 0.035-inch Amplatz guidewire was advanced through the Yueh catheter into the fluid collection. The Yueh catheter was removed. The tract was dilated to 8-Vietnamese. An 8.5 Vietnamese Collins-Vines drainage catheter was advanced over the guidewire into the fluid collection. The guidewire was removed. Additional scanning was performed confirming position. The catheter was then sutured to the patient's skin with 2-0 silk. Approxima tely 8 ml of purulent fluid was aspirated and sent for laboratory analysis. The catheter was connec mehul to a drainage bag. A dressing was applied. The patient tolerated procedure well. COMPARISON: CT scan of the abdomen and pelvis dated 08/09/2017. FINDINGS: Final images demonstrate the drainage catheter in satisfactory position within the midline anterior pelvic abscess. IMPRESSION: 1. Successful CT guided pelvic abscess drainage. RPTAT: QQ .Meliton Ma MD, MD Date Time Electronically viewed and signed by .Meliton Ma MD, on 08/10/2017 15:45 .R/
--- NOTE | 2017-08-10 16:16 | QN ---
Documentation Comment 37 s/p laparoscopic salpingectomy for ovarian torsion per patient and s/p drainage of pelvic abcess who returns with abd pain Vs and patient information reviewed.Pstient is in CT unit for drainage of abdominal abscess and not available for few hours Patient will be followed up with Branch Coordinator team DEMOND MAXWELL M.D. Aug 10, 2017 16:16
[2017-08-10] MEDS ORDERED: INSULIN GLARGINE [LANtus] 3 ML PEN SC SCH ×2 (20:00→23:00)
[2017-08-10] MEDS: CLINDAMYCIN 900 MG/D5W (PMX) 50 ML IVPB SCH (22:58)
[2017-08-10] MEDS ORDERED: INSULIN ASPART [NOVOLOG] 3 ML PEN SC ONE (23:00)
--- NOTE | 2017-08-10 23:15 | PN ---
DATE: 08/11/2017 SUBJECTIVE DATA: No acute changes overnight. Patient is alert, looks comfortable. Complaining of lower abdominal pain. No fevers since this morning. VITAL SIGNS: Temperature 98.8, pulse 90, respirations 18, blood pressure 103/60, saturation 97 percent on room air. LABORATORY AND DIAGNOSTIC DATA: WBC 8.9, H and H 9.7 and 30.6, platelets 389, no shift. BUN 14, creatinine 0.77. MICROBIOLOGY: Blood and urine culture preliminary negative. DIAGNOSTICS: CT of the abdomen and pelvis on admission revealed lobulated enhancing fluid collection identified superior to the urinary bladder, concerning for infection/abscess with a urachal remnant. Recommend aspiration and drainage under CT guidance. Right-sided hydrosalpinx. ANTIMICROBIALS: Patient was started on Zosyn. OBJECTIVE DATA: GENERAL: Well-developed, well-nourished, middle-aged woman, who is alert, in no distress. HEENT: Head atraumatic, normocephalic. Sclerae anicteric. Buccal mucosa dry. NECK: Supple. CHEST: Rise symmetrical. Breath sounds clear. HEART: S1, S2. ABDOMEN: Soft, with tenderness on palpation. Bowel sounds present. EXTREMITIES: Without cyanosis or edema. ASSESSMENT: 1. Abdominal pain secondary to right adnexal hydrosalpinx or parasalpinx. Covered with antibiotics. 2. Diabetes. 3. History of laparoscopic salpingectomy for ovarian torsion. 4. Status post drainage of pelvic abscess. PLAN: Patient remains stable. She is being seen by BRANCH CHIEF. Continue abx, f/u cx's Dictated By: Omer Gonzalez NP /leah/brigid /Document#: [id number] JC
[2017-08-10] MEDS: AZITHROMYCIN 500 MG in SOD CHLORIDE 0.9% 250 ML IVPB ONE ×2 (23:37→23:51)
[2017-08-11] MEDS: PIPER-TAZO 3.375 GM IV (PMX) 100 ML IVPB SCH ×5 (01:11→23:24)
[2017-08-11 01:49] VITALS: BP 126/82; RESP 20
[2017-08-11] MEDS: ACCU-CHEK XX SCH (02:22)
[2017-08-11] MEDS: morphine 2 MG INJ IV PRN ×3 (02:23→19:36)
[2017-08-11] MEDS: SOD CHLORIDE 0.9% 1,000 ML IV SCH ×4 (04:30→23:00)
[2017-08-11] MEDS: CLINDAMYCIN 900 MG/D5W (PMX) 50 ML IVPB SCH ×3 (05:41→21:01)
--- NOTE | 2017-08-11 05:45 | CONS ---
DATE OF ADMISSION: 08/09/2017 DATE OF CONSULTATION: 08/10/2017 HISTORY OF PRESENT ILLNESS: The patient is a 37-year-old, white female who was admitted on 08/09 with a chief complaint of pelvic pain x3 days. Upon arrival, she was found to have a white count of 9600, hemoglobin 11.5, platelet count 433,000. Urinalysis: pH 6.0, specific gravity 1.030, 8 RBCs, 1 WBC, +2 hemoglobin, +2 total protein. Serum glucose 474. The patient was afebrile. Her highest temperature since being here is recently 99.5 degrees or 101 judging from a 99-degree axillary temperature. The patient was seen at [facility] in February 2017 with history of ovarian torsion and had a tube removed supposedly. The patient had subsequently developed a wound abscess in April and had incision and drainage. She began having pain 06/07 and noted bloating and proceeded to be admitted to the hospital here at [facility]. Studies reveal ultrasound, a 3.1 cm right paraovarian cyst, a fluid-filled tubular structure in the right adnexa, possibly hydrosalpinx and loculated fluid above the bladder. ALALLERGIES: The patient has no known allergies. MEMEDICATION: Have included metformin 850 mg twice a day. SOSOCIAL HISTORY: Remarkable in that she smokes "a few" cigarettes daily for 18 years. FAFAMILY HISTORY: Diabetes mellitus. PHPHYSICAL EXAMINATION: GEGENERAL APPEARANCE: Reveals a well-developed, female lying supine in bed, obviously in pain. She is a reasonable historian. VIVITAL SIGNS: Her blood pressure is 96/54, respirations 20, pulse 85, temperature 99.5, and her pulse oximetry is 100 percent on room air. HEHEENT: The pupils are equal, round, react to light. Mucous membranes of the mouth have thickened secretions. NENECK: Supple. No jugular venous distention. CHEST: Clear. ABABDOMEN: The patient is very tender along the right upper quadrant and right lower quadrant of her abdomen and somewhat to the midline above the bladder. There is rebound on the right side. The bowel sounds are present but only occasional. EXEXTREMITIES: Reveal no edema, cyanosis, or clubbing. IMIMPRESSION: 1. Pelvic inflammatory disease, with probable tubo-ovarian complex. 2. Hydrosalpinx. 3. Right para ovarian cyst. 4. Pelvic abscess. 5. Uncontrolled diabetes. RERECOMMENDATIONS: The patient is presently on Zosyn, would continue that. I would add Cleocin 900 mg q.8h and Zithromax 1 dose 500 mg to cover chlamydia or gonorrhea. I would continue to rehydrate the patient, evaluate her for incision and drainage if necessary and control the diabetes more closely. This is Dr. Devonte Ramos for Dr. Ayo Myrick. Dictated By: Devonte Ramos MD /leah/madeline /Document#: [id number]
[2017-08-11 06:09] LABS: BASOPHILS % 0.2 % (0.0-2.0); EOSINOPHILS # 0.2 10^3/ul (0.0-0.5); EOSINOPHILS % 3.3 % (0.0-7.0); HEMATOCRIT 27.8 % (37.0-47.0); HEMOGLOBIN 8.6 g/dl (12.0-16.0); LYMPHOCYTES # 1.5 10^3/ul (0.8-2.9); LYMPHOCYTES % 22.7 % (15.0-51.0); MEAN CORPUSCULAR HEMOGLOBIN 25.7 pg (29.0-33.0); MEAN CORPUSCULAR HGB CONC 30.9 g/dl (32.0-37.0); MEAN CORPUSCULAR VOLUME 83.2 fl (82.0-101.0); MEAN PLATELET VOLUME 9.4 fl (7.4-10.4); MONOCYTE # 0.5 10^3/ul (0.3-0.9); MONOCYTES % 8.5 % (0.0-11.0); NEUTROPHILS % 64.8 % (39.0-77.0); PLATELET COUNT 377 10^3/UL (140-415); RED BLOOD COUNT 3.34 10^6/ul (4.20-5.40); RED CELL DISTRIBUTION WIDTH 12.3 % (11.5-14.5); WHITE BLOOD COUNT 6.4 10^3/ul (4.8-10.8)
--- NOTE | 2017-08-11 06:34 | PQ ---
Date/Time of Note Date/Time of Note DATE: 08/11/17 TIME: 06:27 Physician Query Documentation Clarification Dear Dr. Putnam, A review of the medical record found a need for documentation clarification. Uncontrolled diabetes.------ID COns Diabetes-sugars improved, A1c equals 12.3, continue moderate sliding scale, add Lantus -----progress note 08/09 Serum glucose 474 Please clarify the type of DM (if known). To facilitate accurate and complete coding, please umang ( x ) the suspected diagnosis that apply: ( ) DM type 1 with hyperglycemia ( ) DM type 2 ( ) DM unspecified ( ) Others Please provide your response by clicking edit document, making your choice ( x ), click ok/save and finally click sign. You may also document your response on your progress notes. Thank you for your time. With appreciation, Roman Gardner RN, BSN, CCS, CCDS Clinical Group Therapy Counselor Health Information Management, CDI and Coding Services [phone] Room # 1525 - [address]~ [id number] ROMAN GARDNER Aug 11, 2017 06:34
[2017-08-11 06:49] LABS: CALCIUM 8.3 mg/dl (8.4-10.2); CREATININE 0.89 mg/dl (0.44-1.00)
[2017-08-11 06:50] LABS: MAGNESIUM 1.9 mg/dl (1.7-2.5); PHOSPHORUS 2.8 mg/dl (2.5-4.9)
[2017-08-11] MEDS: PANTOPRAZOLE (EC) 40 MG TAB PO SCH (07:01)
[2017-08-11 07:25] VITALS: BP 100/64; RESP 18
[2017-08-11] MEDS: HEPARIN 5,000 UNIT/0.5 ML VIAL SC SCH ×2 (08:00→20:37)
[2017-08-11] MEDS: INSULIN ASPART [NOVOLOG] 3 ML PEN SC SCH ×6 (08:07→21:00)
[2017-08-11] MEDS ORDERED: INSULIN ASPART [NOVOLOG] 3 ML PEN SC SCH (08:15)
--- NOTE | 2017-08-11 10:19 | PN ---
Date/Time of Note Date/Time of Note DATE: 08/11/17 TIME: 10:17 Assessment/Plan VTE Prophylaxis VTE Prophylaxis Intervention: heparin Lines/Catheters IV [facility] (from [facility] Peripheral IV Assessment/Plan Chief Complaint/Hosp Course ASSESSMENT/PLAN: A 37-year-old, with pelvic pain for 3 days with findings of right adnexa hydrosalpinx and possible abscess and ovarian cyst, status post CT-guided pelvic abscess drainage. 1. Pelvic pain. Likely secondary to right adnexa hydrosalpinx or pyosalpinx, again status post CT-guided pelvic abscess drainage yesterday. -Follow up NURSE EXECUTIVE infectious disease recommendations, as well as infectious disease recommendations -Continue broad-spectrum antibiotics, IV fluids, antiemetics and pain control. - Tylenol p.r.n. pain and fevers, follow-up final culture results 2. Diabetes-sugars improved, A1c = 12.3. Sugars in the 160-220 range in the last 24 hours. - continue moderate sliding scale, increase short acting and long-acting insulin dosages today 3. Gastrointestinal prophylaxis, proton pump inhibitor. 4. Deep vein thrombosis prophylaxis. Heparin subcu. Problems: Subjective 24 Hr Interval Summary Free Text/Dictation Patient had CT-guided pelvic abscess formed yesterday. No acute events overnight. Exam/Review of Systems Vital Signs Vitals Vital Signs Date Time Temp Pulse Resp B/P Pulse Ox O2 Delivery O2 Flow Rate FiO2 08/11/17 07:25 98.2 83 18 100/64 98 08/10/17 18:30 Room Air Intake and Output 08/10/17 08/10/17 08/11/17 15:00 23:00 07:00 Intake Total 1100 ml 630 ml 400 ml Balance 1100 ml 630 ml 400 ml Exam GENERAL: Patient lying in bed, otherwise, no acute distress. HEENT: Pupils equal, round, and react to light. Neck is supple. Intact. NECK: Supple. No thyromegaly. LUNGS: Clear to auscultation bilaterally. CARDIOVASCULAR: S1, S2. No murmurs, rubs or gallops. ABDOMEN: some tenderness to palpation, right-sided flank. No rebound or guarding. Normal bowel sounds otherwise. MUSCULOSKELETAL: No lower extremity edema bilaterally. NEUROLOGIC: No focal deficits. Results Result Diagram: 08/11/17 0550 08/11/17 0550 Results 24 hrs Laboratory Tests Test 08/10/17 12:17 08/10/17 17:30 08/10/17 22:24 08/11/17 01:51 Bedside Glucose 142 154 303 H 294 H Test 08/11/17 05:30 08/11/17 05:50 08/11/17 07:54 Hemoglobin A1c 12.2 H White Blood Count 6.4 # Red Blood Count 3.34 L Hemoglobin 8.6 L Hematocrit 27.8 L Mean Corpuscular Volume 83.2 Mean Corpuscular Hemoglobin 25.7 L Mean Corpuscular Hemoglobin Concent 30.9 L Red Cell Distribution Width 12.3 Platelet Count 377 Mean Platelet Volume 9.4 Neutrophils % 64.8 Lymphocytes % 22.7 Monocytes % 8.5 Eosinophils % 3.3 Basophils % 0.2 Nucleated Red Blood Cells % 0.0 Neutrophils # (Manual) 4.1 Lymphocytes # 1.5 Monocytes # 0.5 Eosinophils # 0.2 Basophils # 0.0 Nucleated Red Blood Cells # 0.0 Sodium Level 136 Potassium Level 4.0 Chloride Level 104 Carbon Dioxide Level 26 Anion Gap 10 Blood Urea Nitrogen 12 Creatinine 0.89 Glucose Level 227 H Calcium Level 8.3 L Phosphorus Level 2.8 Magnesium Level 1.9 Bedside Glucose 196 Medications Medications Current Medications Ondansetron HCl (Zofran Inj) 4 mg Q6H PRN IV NAUSEA AND/OR VOMITING Last administered on 08/10/17 03:13; Admin Dose 4 MG; Start 08/09/17 at 12:30 Acetaminophen (Tylenol Tab) 650 mg Q6H PRN PO PAIN LEVEL 1-3 OR FEVER Last administered on 08/11/17 02:23; Admin Dose 650 MG; Start 08/09/17 at 12:30 Acetaminophen/ Hydrocodone Bitart ([place] (5/325)) 1 tab Q6H PRN PO MODERATE PAIN LEVEL 4-6 Last administered on 08/10/17 19:49; Admin Dose 1 TAB; Start 10/15 at 12:30 Morphine Sulfate (morphine) 2 mg Q4H PRN IV SEVERE PAIN LEVEL 7-10 Last administered on 08/10/17 22:45; Admin Dose 2 MG; Start 08/09/17 at 12:30 Docusate Sodium (Colace) 100 mg Q12H PRN PO CONSTIPATION; Start 08/09/17 at 12: 30 Magnesium Hydroxide (Milk Of Mag) 30 ml DAILY PRN PO CONSTIPATION; Start at 12:30 Sodium Biphosphate/ Sodium Phosphate (Fleet Enema) 133 ml DAILY PRN [place] CONSTIPATION; Start 08/09/17 at 12:30 Pantoprazole (Protonix Tab) 40 mg DAILY@06 PO Last administered on 08/11/17 07 :01; Admin Dose 40 MG; Start 08/09/17 at 12:30 Heparin Sodium (Porcine) (Heparin (5000 Units/0.5 ml)) 5,000 unit Q12 SC Last administered on 08/10/17 22:57; Admin Dose 5,000 UNIT; Start 08/09/17 at 12:30 Lorazepam 0.5 mg 0.5 mg Q6H PRN IV ANXIETY; Start 08/09/17 at 12:30 Sodium Chloride 1,000 ml @ 100 mls/hr Q10H IV Last administered on 08/10/17 17:14; Admin Dose 100 MLS/HR; Start 08/09/17 at 12:30 Piperacillin Sod/ Tazobactam Sod (Zosyn 3.375gm/ 100 ml (Pmx)) 100 ml @ 200 mls /hr Q6 IVPB Last administered on 08/11/17 07:01; Admin Dose 200 MLS/HR; Start 08/09/17 at 12:30 Hydralazine HCl (Apresoline) 10 mg Q6H PRN IV SBP GREATER THAN 180; Start 08/09 at 12:30 Nitroglycerin (Nitroglycerin (Sl Tab) 0.4 Mg) 1 tab Q5M PRN SL ANGINA; Start at 12:30 Miscellaneous Information 1 ea NOTE XX ; Start 08/09/17 at 12:30 Glucose (Glutose) 15 gm Q15M PRN PO DECREASED GLUCOSE; Start 08/09/17 at 12:30 Glucose (Glutose) 22.5 gm Q15M PRN PO DECREASED GLUCOSE; Start 08/09/17 at 12: 30 Dextrose (D50w Syringe) 25 ml Q15M PRN IV DECREASED GLUCOSE; Start 08/09/17 at 12:30 Dextrose (D50w Syringe) 50 ml Q15M PRN IV DECREASED GLUCOSE; Start 08/09/17 at 12:30 Glucagon (Glucagen) 1 mg Q15M PRN IM DECREASED GLUCOSE; Start 08/09/17 at 12:30 Glucose 15 gm 15 gm Q15M PRN BUCCAL DECREASED GLUCOSE; Start 08/09/17 at 12:30 Clindamycin HCl/ Dextrose (Cleocin 900 Mg/ D5W (Pmx)) 50 ml @ 50 mls/hr Q8 IVPB Last administered on 08/11/17 05:41; Admin Dose 50 MLS/HR; Start 08/10/17 at 22:00; Stop 08/15/17 at 14:59 Diagnostic Test (Pha) (Accu-Chek) 1 ea 02 XX Last administered on 08/11/17 02: 22; Admin Dose 1 EA; Start 08/11/17 at 02:00 Insulin Glargine (Lantus) 20 unit DAILY@20 SC ; Start 08/11/17 at 21:00; Status NANCY DOWNEY Aug 11, 2017 10:19
--- NOTE | 2017-08-11 13:28 | CONS ---
Date/Time of Note Date/Time of Note DATE: 08/11/17 TIME: 13:21 Assessment/Plan Assessment/Plan Chief Complaint/Hosp Course SUBJECTIVE DATA: No acute changes overnight. Patient is sleeping, feels ok, afebrile MICROBIOLOGY: Blood and urine culture preliminary negative. DIAGNOSTICS: CT of the abdomen and pelvis on admission revealed lobulated enhancing fluid collection identified superior to the urinary bladder, concerning for infection/abscess with a urachal remnant. Recommend aspiration and drainage under CT guidance. Right-sided hydrosalpinx. ANTIMICROBIALS: Cleocin, Zosyn, s/p Zithromax dose to cover STD. OBJECTIVE DATA: GENERAL: Well-developed, well-nourished, middle-aged woman, who is alert, in no distress. HEENT: Head atraumatic, normocephalic. Sclerae anicteric. Buccal mucosa dry. NECK: Supple. CHEST: Rise symmetrical. Breath sounds clear. HEART: S1, S2. ABDOMEN: Soft, with tenderness on palpation. Bowel sounds present. EXTREMITIES: Without cyanosis or edema. ASSESSMENT: 1. Abdominal pain secondary to right adnexal hydrosalpinx or parasalpinx. Covered with antibiotics. 2. Diabetes. 3. History of laparoscopic salpingectomy for ovarian torsion. 4. Status post drainage of pelvic abscess. PLAN: Patient remains stable. 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 DW staff Problems: Consultation Date/Type/Reason Admit Date/Time Aug 09, 2017 at 11:40 Initial Consult Date Type of Consultation: ID Exam/Review of Systems Vital Signs Vitals Vital Signs Date Time Temp Pulse Resp B/P Pulse Ox O2 Delivery O2 Flow Rate FiO2 08/11/17 07:25 98.2 83 18 100/64 98 08/10/17 18:30 Room Air Intake and Output 08/10/17 08/10/17 08/11/17 15:00 23:00 07:00 Intake Total 1100 ml 630 ml 400 ml Balance 1100 ml 630 ml 400 ml Results Result Diagram: 08/11/17 0550 08/11/17 0550 Results 24 hrs Laboratory Tests Test 08/10/17 17:30 08/10/17 22:24 08/11/17 01:51 08/11/17 05:30 Bedside Glucose 154 303 H 294 H Hemoglobin A1c 12.2 H Test 08/11/17 05:50 08/11/17 07:54 08/11/17 12:06 White Blood Count 6.4 # Red Blood Count 3.34 L Hemoglobin 8.6 L Hematocrit 27.8 L Mean Corpuscular Volume 83.2 Mean Corpuscular Hemoglobin 25.7 L Mean Corpuscular Hemoglobin Concent 30.9 L Red Cell Distribution Width 12.3 Platelet Count 377 Mean Platelet Volume 9.4 Neutrophils % 64.8 Lymphocytes % 22.7 Monocytes % 8.5 Eosinophils % 3.3 Basophils % 0.2 Nucleated Red Blood Cells % 0.0 Neutrophils # (Manual) 4.1 Lymphocytes # 1.5 Monocytes # 0.5 Eosinophils # 0.2 Basophils # 0.0 Nucleated Red Blood Cells # 0.0 Sodium Level 136 Potassium Level 4.0 Chloride Level 104 Carbon Dioxide Level 26 Anion Gap 10 Blood Urea Nitrogen 12 Creatinine 0.89 Glucose Level 227 H Calcium Level 8.3 L Phosphorus Level 2.8 Magnesium Level 1.9 Bedside Glucose 196 153 Medications Medications Current Medications Ondansetron HCl (Zofran Inj) 4 mg Q6H PRN IV NAUSEA AND/OR VOMITING Last administered on 08/10/17 03:13; Admin Dose 4 MG; Start 08/09/17 at 12:30 Acetaminophen (Tylenol Tab) 650 mg Q6H PRN PO PAIN LEVEL 1-3 OR FEVER Last administered on 08/11/17 02:23; Admin Dose 650 MG; Start 08/09/17 at 12:30 Acetaminophen/ Hydrocodone Bitart ([place] (5/325)) 1 tab Q6H PRN PO MODERATE PAIN LEVEL 4-6 Last administered on 08/10/17 19:49; Admin Dose 1 TAB; Start 10/15 at 12:30 Morphine Sulfate (morphine) 2 mg Q4H PRN IV SEVERE PAIN LEVEL 7-10 Last administered on 08/11/17 12:14; Admin Dose 2 MG; Start 08/09/17 at 12:30 Docusate Sodium (Colace) 100 mg Q12H PRN PO CONSTIPATION; Start 08/09/17 at 12: 30 Magnesium Hydroxide (Milk Of Mag) 30 ml DAILY PRN PO CONSTIPATION; Start at 12:30 Sodium Biphosphate/ Sodium Phosphate (Fleet Enema) 133 ml DAILY PRN [place] CONSTIPATION; Start 08/09/17 at 12:30 Pantoprazole (Protonix Tab) 40 mg DAILY@06 PO Last administered on 08/11/17 07 :01; Admin Dose 40 MG; Start 08/09/17 at 12:30 Heparin Sodium (Porcine) (Heparin (5000 Units/0.5 ml)) 5,000 unit Q12 SC Last administered on 08/10/17 22:57; Admin Dose 5,000 UNIT; Start 08/09/17 at 12:30 Lorazepam 0.5 mg 0.5 mg Q6H PRN IV ANXIETY; Start 08/09/17 at 12:30 Sodium Chloride 1,000 ml @ 100 mls/hr Q10H IV Last administered on 08/11/17 10:39; Admin Dose 100 MLS/HR; Start 08/09/17 at 12:30 Piperacillin Sod/ Tazobactam Sod (Zosyn 3.375gm/ 100 ml (Pmx)) 100 ml @ 200 mls /hr Q6 IVPB Last administered on 08/11/17 12:06; Admin Dose 200 MLS/HR; Start 08/09/17 at 12:30 Hydralazine HCl (Apresoline) 10 mg Q6H PRN IV SBP GREATER THAN 180; Start 08/09 at 12:30 Nitroglycerin (Nitroglycerin (Sl Tab) 0.4 Mg) 1 tab Q5M PRN SL ANGINA; Start at 12:30 Miscellaneous Information 1 ea NOTE XX ; Start 08/09/17 at 12:30 Glucose (Glutose) 15 gm Q15M PRN PO DECREASED GLUCOSE; Start 08/09/17 at 12:30 Glucose (Glutose) 22.5 gm Q15M PRN PO DECREASED GLUCOSE; Start 08/09/17 at 12: 30 Dextrose (D50w Syringe) 25 ml Q15M PRN IV DECREASED GLUCOSE; Start 08/09/17 at 12:30 Dextrose (D50w Syringe) 50 ml Q15M PRN IV DECREASED GLUCOSE; Start 08/09/17 at 12:30 Glucagon (Glucagen) 1 mg Q15M PRN IM DECREASED GLUCOSE; Start 08/09/17 at 12:30 Glucose 15 gm 15 gm Q15M PRN BUCCAL DECREASED GLUCOSE; Start 08/09/17 at 12:30 Clindamycin HCl/ Dextrose (Cleocin 900 Mg/ D5W (Pmx)) 50 ml @ 50 mls/hr Q8 IVPB Last administered on 08/11/17 05:41; Admin Dose 50 MLS/HR; Start 08/10/17 at 22:00; Stop 08/15/17 at 14:59 Diagnostic Test (Pha) (Accu-Chek) 1 ea 02 XX Last administered on 08/11/17 02: 22; Admin Dose 1 EA; Start 08/11/17 at 02:00 Insulin Glargine (Lantus) 20 unit DAILY@20 SC ; Start 08/11/17 at 21:00 CURT MCGOWAN NP Aug 11, 2017 13:28
[2017-08-11 20:00] VITALS: BP 110/57; RESP 18
[2017-08-11] MEDS ORDERED: INSULIN GLARGINE [LANtus] 3 ML PEN SC SCH (20:00)
--- NOTE | 2017-08-11 20:54 | PN ---
Date/Time of Note Date/Time of Note DATE: 08/11/17 TIME: 20:47 OB Subjective Subjective Subjective Patient denies any nausea or vomiting. Still complains of pain in the right mid lower abdomen. 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 History of chlamydia 2 in the past. Adnexa masses with clinical symptoms more consistent with tubo-ovarian abscess. Patient is high risk due to past history as well as her diabetes is status OB Objective Objective Objective General appearance: Alert and oriented 4. Appears to be in moderate distress Abdomen: Soft moderate to severe tenderness in the mid to, right side of the abdomen no rebound tenderness, Slight guarding noted In the above area Minimal drainage from the Drain in the abscess per nurse although there are flushing. only 5 cc today. Pelvic Exam deferred Hematology - 72 Hrs Test 08/09/17 05:39 08/10/17 05:09 08/11/17 05:50 White Blood Count 9.610^3/ul (4.8-10.8) 8.910^3/ul (4.8-10.8) 6.410^3/ul (4.8-10.8) # Red Blood Count 4.2610^6/ul (4.20-5.40) 3.6410^6/ul (4.20-5.40) L 3.3410^6/ul (4.20-5.40) L Hemoglobin 11.4g/dl (12.0-16.0) L 9.7g/dl (12.0-16.0) L 8.6g/dl (12.0-16.0) L Hematocrit 35.0% (37.0-47.0) L 30.6% (37.0-47.0) L 27.8% (37.0-47.0) L Mean Corpuscular Volume 82.2fl (82.0-101.0) 84.1fl (82.0-101.0) 83.2fl (82.0-101.0) Mean Corpuscular Hemoglobin 26.8pg (29.0-33.0) L 26.6pg (29.0-33.0) L 25.7pg (29.0-33.0) L Mean Corpuscular Hemoglobin Concent 32.6g/dl (32.0-37.0) 31.7g/dl (32.0-37.0) L 30.9g/dl (32.0-37.0) L Red Cell Distribution Width 11.9% (11.5-14.5) 11.9% (11.5-14.5) 12.3% (11.5-14.5) Platelet Count 91481^3/UL (140-415) H 44616^3/UL (140-415) 65067^3/UL (140-415) Mean Platelet Volume 10.2fl (7.4-10.4) 9.7fl (7.4-10.4) 9.4fl (7.4-10.4) Neutrophils % 78.7% (39.0-77.0) H 74.8% (39.0-77.0) 64.8% (39.0-77.0) Lymphocytes % 12.7% (15.0-51.0) L 14.1% (15.0-51.0) L 22.7% (15.0-51.0) Monocytes % 6.0% (0.0-11.0) 7.6% (0.0-11.0) 8.5% (0.0-11.0) Eosinophils % 1.4% (0.0-7.0) 2.6% (0.0-7.0) 3.3% (0.0-7.0) Basophils % 0.5% (0.0-2.0) 0.6% (0.0-2.0) 0.2% (0.0-2.0) Nucleated Red Blood Cells % 0.0/100WBC (0.0-0.0) 0.0/100WBC (0.0-0.0) 0.0/100WBC (0.0-0.0) Neutrophils # (Manual) 7.510^3/ul (1.7-7.5) 6.610^3/ul (1.7-7.5) 4.110^3/ul (1.7-7.5) Lymphocytes # 1.210^3/ul (0.8-2.9) 1.310^3/ul (0.8-2.9) 1.510^3/ul (0.8-2.9) Monocytes # 0.610^3/ul (0.3-0.9) 0.710^3/ul (0.3-0.9) 0.510^3/ul (0.3-0.9) Eosinophils # 0.110^3/ul (0.0-0.5) 0.210^3/ul (0.0-0.5) 0.210^3/ul (0.0-0.5) Basophils # 0.110^3/ul (0.0-0.1) 0.110^3/ul (0.0-0.1) 0.010^3/ul (0.0-0.1) Nucleated Red Blood Cells # 0.010^3/ul (0.0-0.0) 0.010^3/ul (0.0-0.0) 0.010^3/ul (0.0-0.0) Chemistry Test 08/09/17 05:39 08/09/17 07:18 08/09/17 08:38 08/09/17 13:18 Sodium Level 135mmol/L (135-144) Potassium Level 4.7mmol/L (3.5-5.1) Chloride Level 98mmol/L (97-110) Carbon Dioxide Level 26mmol/L (21-31) Anion Gap 16 (8-16) Blood Urea Nitrogen 29mg/dl (7-20) H Creatinine 1.00mg/dl (0.44-1.00) Glucose Level 474mg/dl (70-220) *H Calcium Level 9.9mg/dl (8.4-10.2) Total Bilirubin 0.0mg/dl (0.2-1.3) L Direct Bilirubin 0.00mg/dl (0.00-0.20) Indirect Bilirubin 0.0mg/dl (0-1.1) Aspartate Amino Transf (AST/SGOT) 40IU/L (15-46) Alanine Aminotransferase (ALT/SGPT) 44IU/L (13-69) Alkaline Phosphatase 134IU/L (42-121) H Total Protein 7.7g/dl (6.1-8.1) Albumin 3.9g/dl (3.3-4.9) Globulin 3.80g/dl (1.3-3.2) H Albumin/Globulin Ratio 1.02 Lipase 158U/L (23-300) Bedside Glucose 327mg/dL (70-220) H 378mg/dL (70-220) H 307mg/dL (70-220) H Test 08/09/17 14:44 08/09/17 17:07 08/09/17 21:04 08/10/17 01:07 Free Thyroxine 1.55ng/dl (0.79-2.35) Bedside Glucose 119mg/dL (70-220) 163mg/dL (70-220) 141mg/dL (70-220) Test 08/10/17 04:23 08/10/17 05:09 08/10/17 08:07 08/10/17 12:17 Bedside Glucose 135mg/dL (70-220) 150mg/dL (70-220) 142mg/dL (70-220) Sodium Level 135mmol/L (135-144) Potassium Level 4.2mmol/L (3.5-5.1) Chloride Level 105mmol/L (97-110) Carbon Dioxide Level 25mmol/L (21-31) Anion Gap 9 (8-16) # Blood Urea Nitrogen 14mg/dl (7-20) # Creatinine 0.77mg/dl (0.44-1.00) Glucose Level 138mg/dl (70-220) # Hemoglobin A1c 12.3% (0-5.9) H Calcium Level 8.5mg/dl (8.4-10.2) Phosphorus Level 3.2mg/dl (2.5-4.9) Magnesium Level 1.5mg/dl (1.7-2.5) L Triglycerides Level 110mg/dl (0-149) Cholesterol Level 130mg/dl (100-200) LDL Cholesterol, Calculated 68mg/dl HDL Cholesterol 40mg/dl (34-82) Cholesterol/HDL Ratio 3.2RATIO Thyroid Stimulating Hormone (TSH) 0.797MIU/L (0.465-4.680) Test 08/10/17 17:30 08/10/17 22:24 08/11/17 01:51 08/11/17 05:30 Bedside Glucose 154mg/dL (70-220) 303mg/dL (70-220) H 294mg/dL (70-220) H Hemoglobin A1c 12.2% (0-5.9) H Test 08/11/17 05:50 08/11/17 07:54 08/11/17 12:06 08/11/17 17:14 Sodium Level 136mmol/L (135-144) Potassium Level 4.0mmol/L (3.5-5.1) Chloride Level 104mmol/L (97-110) Carbon Dioxide Level 26mmol/L (21-31) Anion Gap 10 (8-16) Blood Urea Nitrogen 12mg/dl (7-20) Creatinine 0.89mg/dl (0.44-1.00) Glucose Level 227mg/dl (70-220) H Calcium Level 8.3mg/dl (8.4-10.2) L Phosphorus Level 2.8mg/dl (2.5-4.9) Magnesium Level 1.9mg/dl (1.7-2.5) Bedside Glucose 196mg/dL (70-220) 153mg/dL (70-220) 155mg/dL (70-220) OB Assessment/Plan Other Assessment: HD #3 Admitted for Lower abdominal pain, and adnexal mass consistent with pelvic abscess. S/p CT guided drainage, not draining well recommended contact radiology tomorrow for readjustment of the tube. Continue Broad spectrum Iv Abx recommended by ID. Currently less than 24 hours of receiving antibiotics Strict blood sugar control by internal medicine Continue to follow-up while in-house Expectation improvement of the symptoms within 48 hours after treatment by clinical examination as well as decreasing the size of the abscess and repeat imaging in 2-3 days If no improvement or decreasing in the size of abscess recommended to be seen by POLICE DISPATCHER oncology perhaps for laparoscopic drainage. Dropping the hemoglobin noted. Likely secondary to IV fluid We will continue to monitor closely Does not appear to be bleeding Strict I's and O's COURTNEY BARTLETT MD Aug 11, 2017 20:54
[2017-08-11] MEDS: INSULIN GLARGINE [LANtus] 3 ML PEN SC SCH (21:16)
[2017-08-11] MEDS: HYDROCODONE/APAP (5/325) TAB PO PRN (23:28)
[2017-08-12] MEDS: ACCU-CHEK XX SCH (01:32)
[2017-08-12] MEDS: SOD CHLORIDE 0.9% 1,000 ML IV SCH ×2 (02:28→22:05)
[2017-08-12 02:31] VITALS: BP 119/75; RESP 18
[2017-08-12] MEDS: PANTOPRAZOLE (EC) 40 MG TAB PO SCH (05:16)
[2017-08-12] MEDS: PIPER-TAZO 3.375 GM IV (PMX) 100 ML IVPB SCH ×2 (05:16→12:14)
[2017-08-12] MEDS: CLINDAMYCIN 900 MG/D5W (PMX) 50 ML IVPB SCH ×2 (06:04→13:49)
[2017-08-12 06:10] LABS: BASOPHILS % 0.6 % (0.0-2.0); EOSINOPHILS # 0.4 10^3/ul (0.0-0.5); EOSINOPHILS % 4.9 % (0.0-7.0); HEMATOCRIT 27.4 % (37.0-47.0); HEMOGLOBIN 8.7 g/dl (12.0-16.0); LYMPHOCYTES # 1.8 10^3/ul (0.8-2.9); LYMPHOCYTES % 25.5 % (15.0-51.0); MEAN CORPUSCULAR HEMOGLOBIN 26.9 pg (29.0-33.0); MEAN CORPUSCULAR HGB CONC 31.8 g/dl (32.0-37.0); MEAN CORPUSCULAR VOLUME 84.6 fl (82.0-101.0); MEAN PLATELET VOLUME 9.5 fl (7.4-10.4); MONOCYTE # 0.6 10^3/ul (0.3-0.9); MONOCYTES % 7.6 % (0.0-11.0); NEUTROPHIL # 4.4 10^3/ul (1.6-7.5); NEUTROPHILS % 61.1 % (39.0-77.0); PLATELET COUNT 396 10^3/UL (140-415); RED BLOOD COUNT 3.24 10^6/ul (4.20-5.40); RED CELL DISTRIBUTION WIDTH 12.2 % (11.5-14.5); WHITE BLOOD COUNT 7.2 10^3/ul (4.8-10.8)
[2017-08-12 06:35] LABS: CALCIUM 8.8 mg/dl (8.4-10.2); CREATININE 0.92 mg/dl (0.44-1.00); POTASSIUM 4.9 mmol/L (3.5-5.1)
[2017-08-12 07:39] VITALS: BP 108/64; RESP 18
[2017-08-12] MEDS: HEPARIN 5,000 UNIT/0.5 ML VIAL SC SCH ×2 (08:09→20:30)
[2017-08-12] MEDS: INSULIN ASPART [NOVOLOG] 3 ML PEN SC SCH ×7 (08:12→20:49)
--- NOTE | 2017-08-12 10:54 | PN ---
Date/Time of Note Date/Time of Note DATE: 08/12/17 TIME: 10:51 Assessment/Plan VTE Prophylaxis VTE Prophylaxis Intervention: heparin Lines/Catheters IV [facility] Peripheral IV Assessment/Plan Chief Complaint/Hosp Course ASSESSMENT/PLAN: A 37-year-old, with pelvic pain for 3 days with findings of right adnexa hydrosalpinx and possible abscess and ovarian cyst, status post CT- guided pelvic abscess drainage. 1. Pelvic pain. Likely secondary to right adnexa hydrosalpinx or pyosalpinx, again status post CT-guided pelvic abscess drainage 2 days ago. Wound culture positive for Klebsiella. -Follow up TYPE CASTER infectious disease recommendations, as well as infectious disease recommendations. Continue to monitor output from drain, TYPE CASTER team is speaking with radiology about possible readjustment of the drain. They are recommending a repeat scan in the next 2-3 days as well, if the fluid collection has not decreased in size, they may consider laparoscopic procedure for drainage at that time. -Continue broad-spectrum antibiotics-we will add Levaquin based on sensitivities, IV fluids, antiemetics and pain control. - Tylenol p.r.n. pain and fevers, follow-up final culture results 2. Diabetes-sugars improved, A1c = 12.3. Sugars improved to the 100-140 range in the last 24 hours. - continue moderate sliding scale, current dosages of short acting and long- acting insulin 3. Gastrointestinal prophylaxis, proton pump inhibitor. 4. Deep vein thrombosis prophylaxis. Heparin subcu. Problems: Subjective 24 Hr Interval Summary Free Text/Dictation Seen by TYPE CASTER team last night, sugars have improved, no acute events overnight. Exam/Review of Systems Vital Signs Vitals Vital Signs Date Time Temp Pulse Resp B/P Pulse Ox O2 Delivery O2 Flow Rate FiO2 08/12/17 07:39 98.1 80 18 108/64 97 08/10/17 18:30 Room Air Intake and Output 08/11/17 08/11/17 08/12/17 15:00 23:00 07:00 Intake Total 1150 ml 1400 ml 1130 ml Output Total 5 ml 620 ml Balance 1145 ml 1400 ml 510 ml Exam GENERAL: Patient lying in bed, otherwise, no acute distress. HEENT: Pupils equal, round, and react to light. Neck is supple. Intact. NECK: Supple. No thyromegaly. LUNGS: Clear to auscultation bilaterally. CARDIOVASCULAR: S1, S2. No murmurs, rubs or gallops. ABDOMEN: less tenderness to palpation, right-sided flank. No rebound or guarding. Normal bowel sounds otherwise. MUSCULOSKELETAL: No lower extremity edema bilaterally. NEUROLOGIC: No focal deficits. Results Result Diagram: 08/12/17 0525 08/12/17 0525 Results 24 hrs Laboratory Tests Test 08/11/17 12:06 08/11/17 17:14 08/11/17 21:00 08/12/17 05:25 Bedside Glucose 153 155 112 White Blood Count 7.2 Red Blood Count 3.24 L Hemoglobin 8.7 L Hematocrit 27.4 L Mean Corpuscular Volume 84.6 Mean Corpuscular Hemoglobin 26.9 L Mean Corpuscular Hemoglobin Concent 31.8 L Red Cell Distribution Width 12.2 Platelet Count 396 Mean Platelet Volume 9.5 Neutrophils % 61.1 Lymphocytes % 25.5 Monocytes % 7.6 Eosinophils % 4.9 Basophils % 0.6 Nucleated Red Blood Cells % 0.0 Neutrophils # 4.4 Lymphocytes # 1.8 Monocytes # 0.6 Eosinophils # 0.4 Basophils # 0.0 Nucleated Red Blood Cells # 0.0 Sodium Level 139 Potassium Level 4.9 Chloride Level 106 Carbon Dioxide Level 29 Anion Gap 9 Blood Urea Nitrogen 11 Creatinine 0.92 Glucose Level 143 # Calcium Level 8.8 Test 08/12/17 08:07 Bedside Glucose 164 Medications Medications Current Medications Ondansetron HCl (Zofran Inj) 4 mg Q6H PRN IV NAUSEA AND/OR VOMITING Last administered on 08/10/17 03:13; Admin Dose 4 MG; Start 08/09/17 at 12:30 Acetaminophen (Tylenol Tab) 650 mg Q6H PRN PO PAIN LEVEL 1-3 OR FEVER Last administered on 08/11/17 02:23; Admin Dose 650 MG; Start 08/09/17 at 12:30 Acetaminophen/ Hydrocodone Bitart ([place] (5/325)) 1 tab Q6H PRN PO MODERATE PAIN LEVEL 4-6 Last administered on 08/11/17 23:28; Admin Dose 1 TAB; Start 10/15 at 12:30 Morphine Sulfate (morphine) 2 mg Q4H PRN IV SEVERE PAIN LEVEL 7-10 Last administered on 08/11/17 19:36; Admin Dose 2 MG; Start 08/09/17 at 12:30 Docusate Sodium (Colace) 100 mg Q12H PRN PO CONSTIPATION; Start 08/09/17 at 12: 30 Magnesium Hydroxide (Milk Of Mag) 30 ml DAILY PRN PO CONSTIPATION; Start at 12:30 Sodium Biphosphate/ Sodium Phosphate (Fleet Enema) 133 ml DAILY PRN [place] CONSTIPATION; Start 08/09/17 at 12:30 Pantoprazole (Protonix Tab) 40 mg DAILY@06 PO Last administered on 08/12/17 05 :16; Admin Dose 40 MG; Start 08/09/17 at 12:30 Heparin Sodium (Porcine) (Heparin (5000 Units/0.5 ml)) 5,000 unit Q12 SC Last administered on 08/10/17 22:57; Admin Dose 5,000 UNIT; Start 08/09/17 at 12:30 Lorazepam 0.5 mg 0.5 mg Q6H PRN IV ANXIETY; Start 08/09/17 at 12:30 Sodium Chloride 1,000 ml @ 50 mls/hr Q20H IV Last administered on 08/11/17 23 :00; Admin Dose 50 MLS/HR; Start 08/09/17 at 12:30 Piperacillin Sod/ Tazobactam Sod (Zosyn 3.375gm/ 100 ml (Pmx)) 100 ml @ 200 mls /hr Q6 IVPB Last administered on 08/12/17 05:16; Admin Dose 200 MLS/HR; Start 08/09/17 at 12:30 Hydralazine HCl (Apresoline) 10 mg Q6H PRN IV SBP GREATER THAN 180; Start 08/09 at 12:30 Nitroglycerin (Nitroglycerin (Sl Tab) 0.4 Mg) 1 tab Q5M PRN SL ANGINA; Start at 12:30 Miscellaneous Information 1 ea NOTE XX ; Start 08/09/17 at 12:30 Glucose (Glutose) 15 gm Q15M PRN PO DECREASED GLUCOSE; Start 08/09/17 at 12:30 Glucose (Glutose) 22.5 gm Q15M PRN PO DECREASED GLUCOSE; Start 08/09/17 at 12: 30 Dextrose (D50w Syringe) 25 ml Q15M PRN IV DECREASED GLUCOSE; Start 08/09/17 at 12:30 Dextrose (D50w Syringe) 50 ml Q15M PRN IV DECREASED GLUCOSE; Start 08/09/17 at 12:30 Glucagon (Glucagen) 1 mg Q15M PRN IM DECREASED GLUCOSE; Start 08/09/17 at 12:30 Glucose 15 gm 15 gm Q15M PRN BUCCAL DECREASED GLUCOSE; Start 08/09/17 at 12:30 Clindamycin HCl/ Dextrose (Cleocin 900 Mg/ D5W (Pmx)) 50 ml @ 50 mls/hr Q8 IVPB Last administered on 08/12/17 06:04; Admin Dose 50 MLS/HR; Start 08/10/17 at 22:00; Stop 08/15/17 at 14:59 Diagnostic Test (Pha) (Accu-Chek) 1 ea 02 XX Last administered on 08/11/17 02: 22; Admin Dose 1 EA; Start 08/11/17 at 02:00 Insulin Glargine 20 unit 20 unit DAILY@20 SC Last administered on 08/11/17 21: 16; Admin Dose 20 UNIT; Start 08/11/17 at 21:00 Levofloxacin/ Dextrose (Levaquin 750 Mg/ D5W 150 ml (Pmx)) 150 ml @ 100 mls/hr Q24H IVPB ; Start 08/12/17 at 16:00 NANCY CARVER Aug 12, 2017 10:54
--- NOTE | 2017-08-12 11:10 | QN ---
Documentation Comment pt feeling better vss exam minimal tenderness in the abdoment draing 20cc green/yellow fluid a/p TOA s/p drainage-discussed with DR mckay and since still draining to leave drain in for a few more days. continue IV abx MERON MCDANIELS MD Aug 12, 2017 11:10
[2017-08-12] MEDS ORDERED: LEVOFLOXACIN 750MG/D5W (PMX) 150 ML IVPB SCH (12:00)
[2017-08-12 14:00] VITALS: BP 110/77; RESP 19
--- NOTE | 2017-08-12 14:42 | CONS ---
Date/Time of Note Date/Time of Note DATE: 08/12/17 TIME: 14:40 Assessment/Plan Assessment/Plan Chief Complaint/Hosp Course SUBJECTIVE DATA: No acute changes overnight. Patient is sleeping, no fevers, nad MICROBIOLOGY: Blood and urine culture negative, fluid cx + Kleb, no anaerobes. DIAGNOSTICS: CT of the abdomen and pelvis on admission revealed lobulated enhancing fluid collection identified superior to the urinary bladder, concerning for infection/abscess with a urachal remnant. Recommend aspiration and drainage under CT guidance. Right-sided hydrosalpinx. ANTIMICROBIALS: Cleocin, Levaquin, s/p Zithromax dose to cover STD. OBJECTIVE DATA: GENERAL: Well-developed, well-nourished, middle-aged woman, who is alert, in no distress. HEENT: Head atraumatic, normocephalic. Sclerae anicteric. Buccal mucosa dry. NECK: Supple. CHEST: Rise symmetrical. Breath sounds clear. HEART: S1, S2. ABDOMEN: Soft, with tenderness on palpation. Bowel sounds present. EXTREMITIES: Without cyanosis or edema. ASSESSMENT: 1. Abdominal pain secondary to right adnexal hydrosalpinx or parasalpinx==> s/p drainage cath. 2. Diabetes. 3. History of laparoscopic salpingectomy for ovarian torsion. 4. Status post drainage of pelvic abscess. PLAN: Patient remains stable. 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 DW staff DW staff Problems: Consultation Date/Type/Reason Admit Date/Time Aug 09, 2017 at 11:40 Type of Consultation: ID Exam/Review of Systems Vital Signs Vitals Vital Signs Date Time Temp Pulse Resp B/P Pulse Ox O2 Delivery O2 Flow Rate FiO2 08/12/17 07:39 98.1 80 18 108/64 97 08/10/17 18:30 Room Air Intake and Output 08/11/17 08/11/17 08/12/17 15:00 23:00 07:00 Intake Total 1150 ml 1400 ml 1130 ml Output Total 5 ml 620 ml Balance 1145 ml 1400 ml 510 ml Results Result Diagram: 08/12/17 0525 08/12/17 0525 Results 24 hrs Laboratory Tests Test 08/11/17 17:14 08/11/17 21:00 08/12/17 05:25 08/12/17 08:07 Bedside Glucose 155 112 164 White Blood Count 7.2 Red Blood Count 3.24 L Hemoglobin 8.7 L Hematocrit 27.4 L Mean Corpuscular Volume 84.6 Mean Corpuscular Hemoglobin 26.9 L Mean Corpuscular Hemoglobin Concent 31.8 L Red Cell Distribution Width 12.2 Platelet Count 396 Mean Platelet Volume 9.5 Neutrophils % 61.1 Lymphocytes % 25.5 Monocytes % 7.6 Eosinophils % 4.9 Basophils % 0.6 Nucleated Red Blood Cells % 0.0 Neutrophils # 4.4 Lymphocytes # 1.8 Monocytes # 0.6 Eosinophils # 0.4 Basophils # 0.0 Nucleated Red Blood Cells # 0.0 Sodium Level 139 Potassium Level 4.9 Chloride Level 106 Carbon Dioxide Level 29 Anion Gap 9 Blood Urea Nitrogen 11 Creatinine 0.92 Glucose Level 143 # Calcium Level 8.8 Test 08/12/17 12:04 Bedside Glucose 138 Medications Medications Current Medications Ondansetron HCl (Zofran Inj) 4 mg Q6H PRN IV NAUSEA AND/OR VOMITING Last administered on 08/10/17 03:13; Admin Dose 4 MG; Start 08/09/17 at 12:30 Acetaminophen (Tylenol Tab) 650 mg Q6H PRN PO PAIN LEVEL 1-3 OR FEVER Last administered on 08/11/17 02:23; Admin Dose 650 MG; Start 08/09/17 at 12:30 Acetaminophen/ Hydrocodone Bitart ([place] (5/325)) 1 tab Q6H PRN PO MODERATE PAIN LEVEL 4-6 Last administered on 08/11/17 23:28; Admin Dose 1 TAB; Start 10/15 at 12:30 Morphine Sulfate (morphine) 2 mg Q4H PRN IV SEVERE PAIN LEVEL 7-10 Last administered on 08/11/17 19:36; Admin Dose 2 MG; Start 08/09/17 at 12:30 Docusate Sodium (Colace) 100 mg Q12H PRN PO CONSTIPATION; Start 08/09/17 at 12: 30 Magnesium Hydroxide (Milk Of Mag) 30 ml DAILY PRN PO CONSTIPATION; Start at 12:30 Sodium Biphosphate/ Sodium Phosphate (Fleet Enema) 133 ml DAILY PRN [place] CONSTIPATION; Start 08/09/17 at 12:30 Pantoprazole (Protonix Tab) 40 mg DAILY@06 PO Last administered on 08/12/17 05 :16; Admin Dose 40 MG; Start 08/09/17 at 12:30 Heparin Sodium (Porcine) (Heparin (5000 Units/0.5 ml)) 5,000 unit Q12 SC Last administered on 08/10/17 22:57; Admin Dose 5,000 UNIT; Start 08/09/17 at 12:30 Lorazepam 0.5 mg 0.5 mg Q6H PRN IV ANXIETY; Start 08/09/17 at 12:30 Sodium Chloride 1,000 ml @ 50 mls/hr Q20H IV Last administered on 08/11/17 23 :00; Admin Dose 50 MLS/HR; Start 08/09/17 at 12:30 Piperacillin Sod/ Tazobactam Sod (Zosyn 3.375gm/ 100 ml (Pmx)) 100 ml @ 200 mls /hr Q6 IVPB Last administered on 08/12/17 12:14; Admin Dose 200 MLS/HR; Start 08/09/17 at 12:30 Hydralazine HCl (Apresoline) 10 mg Q6H PRN IV SBP GREATER THAN 180; Start 08/09 at 12:30 Nitroglycerin (Nitroglycerin (Sl Tab) 0.4 Mg) 1 tab Q5M PRN SL ANGINA; Start at 12:30 Miscellaneous Information 1 ea NOTE XX ; Start 08/09/17 at 12:30 Glucose (Glutose) 15 gm Q15M PRN PO DECREASED GLUCOSE; Start 08/09/17 at 12:30 Glucose (Glutose) 22.5 gm Q15M PRN PO DECREASED GLUCOSE; Start 08/09/17 at 12: 30 Dextrose (D50w Syringe) 25 ml Q15M PRN IV DECREASED GLUCOSE; Start 08/09/17 at 12:30 Dextrose (D50w Syringe) 50 ml Q15M PRN IV DECREASED GLUCOSE; Start 08/09/17 at 12:30 Glucagon (Glucagen) 1 mg Q15M PRN IM DECREASED GLUCOSE; Start 08/09/17 at 12:30 Glucose 15 gm 15 gm Q15M PRN BUCCAL DECREASED GLUCOSE; Start 08/09/17 at 12:30 Clindamycin HCl/ Dextrose (Cleocin 900 Mg/ D5W (Pmx)) 50 ml @ 50 mls/hr Q8 IVPB Last administered on 08/12/17 13:49; Admin Dose 50 MLS/HR; Start 08/10/17 at 22:00; Stop 08/15/17 at 14:59 Diagnostic Test (Pha) (Accu-Chek) 1 ea 02 XX Last administered on 08/11/17 02: 22; Admin Dose 1 EA; Start 08/11/17 at 02:00 Insulin Glargine 20 unit 20 unit DAILY@20 SC Last administered on 08/11/17 21: 16; Admin Dose 20 UNIT; Start 08/11/17 at 21:00 Levofloxacin/ Dextrose (Levaquin 750 Mg/ D5W 150 ml (Pmx)) 150 ml @ 100 mls/hr Q24H IVPB ; Start 08/12/17 at 16:00 CURT MCGOWAN NP Aug 12, 2017 14:42
[2017-08-12] MEDS: LEVOFLOXACIN 750MG/D5W (PMX) 150 ML IVPB SCH (16:49)
[2017-08-12 20:10] VITALS: BP 112/69; RESP 18
[2017-08-12] MEDS: INSULIN GLARGINE [LANtus] 3 ML PEN SC SCH (20:37)
[2017-08-13] MEDS: ACCU-CHEK XX SCH (01:52)
[2017-08-13 02:00] VITALS: BP 118/79; RESP 18
[2017-08-13] MEDS: PANTOPRAZOLE (EC) 40 MG TAB PO SCH (05:54)
[2017-08-13 06:24] LABS: BASOPHILS % 0.4 % (0.0-2.0); EOSINOPHILS # 0.3 10^3/ul (0.0-0.5); EOSINOPHILS % 4.2 % (0.0-7.0); HEMATOCRIT 29.9 % (37.0-47.0); HEMOGLOBIN 9.5 g/dl (12.0-16.0); LYMPHOCYTES # 1.7 10^3/ul (0.8-2.9); LYMPHOCYTES % 22.9 % (15.0-51.0); MEAN CORPUSCULAR HEMOGLOBIN 26.5 pg (29.0-33.0); MEAN CORPUSCULAR HGB CONC 31.8 g/dl (32.0-37.0); MEAN CORPUSCULAR VOLUME 83.3 fl (82.0-101.0); MEAN PLATELET VOLUME 9.2 fl (7.4-10.4); MONOCYTE # 0.4 10^3/ul (0.3-0.9); NEUTROPHILS % 67.1 % (39.0-77.0); PLATELET COUNT 480 10^3/UL (140-415); RED BLOOD COUNT 3.59 10^6/ul (4.20-5.40); WHITE BLOOD COUNT 7.4 10^3/ul (4.8-10.8)
[2017-08-13 06:48] LABS: CALCIUM 9.3 mg/dl (8.4-10.2); CREATININE 0.81 mg/dl (0.44-1.00); POTASSIUM 3.9 mmol/L (3.5-5.1)
[2017-08-13 07:38] VITALS: BP 133/83; RESP 16
[2017-08-13] MEDS: INSULIN ASPART [NOVOLOG] 3 ML PEN SC SCH ×7 (07:58→20:32)
[2017-08-13] MEDS: HEPARIN 5,000 UNIT/0.5 ML VIAL SC SCH ×2 (08:02→20:31)
--- NOTE | 2017-08-13 10:15 | PN ---
Date/Time of Note Date/Time of Note DATE: 08/13/17 TIME: 10:12 Assessment/Plan VTE Prophylaxis VTE Prophylaxis Intervention: heparin Lines/Catheters IV C[facility]ter Type (from [facility]): Peripheral IV Assessment/Plan Chief Complaint/Hosp Course ASSESSMENT/PLAN: A 37-year-old, with pelvic pain for 3 days with findings of right adnexa hydrosalpinx and possible abscess and ovarian cyst, status post CT- guided pelvic abscess drainage. 1. Pelvic pain. Likely secondary to right adnexa hydrosalpinx or pyosalpinx, again status post CT-guided pelvic abscess drainage 3 days ago. Wound culture positive for Klebsiella. -Follow up PMO BUSINESS ANALYST infectious disease recommendations, as well as infectious disease recommendations. Continue to monitor output from drain; recommending a repeat scan in the next 1-2 days as well, if the fluid collection has not decreased in size then, they may consider laparoscopic procedure for drainage at that time. -Continue broad-spectrum antibiotics-we will add Levaquin based on sensitivities, IV fluids, antiemetics and pain control. - Tylenol p.r.n. pain and fevers, follow-up final culture results 2. Diabetes-sugars improved, A1c = 12.3. Sugars stable - continue sliding scale, current dosages of short acting and long-acting insulin 3. Gastrointestinal prophylaxis, proton pump inhibitor. 4. Deep vein thrombosis prophylaxis. Heparin subcu. Problems: Subjective 24 Hr Interval Summary Free Text/Dictation No acute events overnight, patient tolerating diet. Exam/Review of Systems Vital Signs Vitals Vital Signs Date Time Temp Pulse Resp B/P Pulse Ox O2 Delivery O2 Flow Rate FiO2 08/13/17 07:38 98.5 78 16 133/83 99 08/10/17 18:30 Room Air Intake and Output 08/12/17 08/12/17 08/13/17 15:00 23:00 07:00 Intake Total 900 ml 790 ml Output Total 810 ml Balance 900 ml -20 ml Exam GENERAL: Patient lying in bed, otherwise, no acute distress. HEENT: Pupils equal, round, and react to light. Neck is supple. Intact. NECK: Supple. No thyromegaly. LUNGS: Clear to auscultation bilaterally. CARDIOVASCULAR: S1, S2. No murmurs, rubs or gallops. ABDOMEN: less tenderness to palpation, right-sided flank. No rebound or guarding. Normal bowel sounds otherwise. MUSCULOSKELETAL: No lower extremity edema bilaterally. NEUROLOGIC: No focal deficits. Results Result Diagram: 08/13/17 0605 08/13/17 0605 Results 24 hrs Laboratory Tests Test 08/12/17 12:04 08/12/17 16:54 08/12/17 20:33 08/13/17 01:16 Bedside Glucose 138 140 228 H 146 Test 08/13/17 06:05 08/13/17 07:58 White Blood Count 7.4 Red Blood Count 3.59 L Hemoglobin 9.5 L Hematocrit 29.9 L Mean Corpuscular Volume 83.3 Mean Corpuscular Hemoglobin 26.5 L Mean Corpuscular Hemoglobin Concent 31.8 L Red Cell Distribution Width 12.0 Platelet Count 480 #H Mean Platelet Volume 9.2 Neutrophils % 67.1 Lymphocytes % 22.9 Monocytes % 5.0 Eosinophils % 4.2 Basophils % 0.4 Nucleated Red Blood Cells % 0.0 Neutrophils # 5.0 Lymphocytes # 1.7 Monocytes # 0.4 Eosinophils # 0.3 Basophils # 0.0 Nucleated Red Blood Cells # 0.0 Sodium Level 140 Potassium Level 3.9 Chloride Level 105 Carbon Dioxide Level 29 Anion Gap 10 Blood Urea Nitrogen 11 Creatinine 0.81 Glucose Level 129 Calcium Level 9.3 Bedside Glucose 121 Medications Medications Current Medications Ondansetron HCl (Zofran Inj) 4 mg Q6H PRN IV NAUSEA AND/OR VOMITING Last administered on 08/10/17 03:13; Admin Dose 4 MG; Start 08/09/17 at 12:30 Acetaminophen (Tylenol Tab) 650 mg Q6H PRN PO PAIN LEVEL 1-3 OR FEVER Last administered on 08/11/17 02:23; Admin Dose 650 MG; Start 08/09/17 at 12:30 Acetaminophen/ Hydrocodone Bitart ([place] (5/325)) 1 tab Q6H PRN PO MODERATE PAIN LEVEL 4-6 Last administered on 08/11/17 23:28; Admin Dose 1 TAB; Start 10/15 at 12:30 Morphine Sulfate (morphine) 2 mg Q4H PRN IV SEVERE PAIN LEVEL 7-10 Last administered on 08/11/17 19:36; Admin Dose 2 MG; Start 08/09/17 at 12:30 Docusate Sodium (Colace) 100 mg Q12H PRN PO CONSTIPATION; Start 08/09/17 at 12: 30 Magnesium Hydroxide (Milk Of Mag) 30 ml DAILY PRN PO CONSTIPATION; Start at 12:30 Sodium Biphosphate/ Sodium Phosphate (Fleet Enema) 133 ml DAILY PRN [place] CONSTIPATION; Start 08/09/17 at 12:30 Pantoprazole (Protonix Tab) 40 mg DAILY@06 PO Last administered on 08/13/17 05 :54; Admin Dose 40 MG; Start 08/09/17 at 12:30 Heparin Sodium (Porcine) (Heparin (5000 Units/0.5 ml)) 5,000 unit Q12 SC Last administered on 08/10/17 22:57; Admin Dose 5,000 UNIT; Start 08/09/17 at 12:30 Lorazepam 0.5 mg 0.5 mg Q6H PRN IV ANXIETY; Start 08/09/17 at 12:30 Sodium Chloride (NS) 1,000 ml @ 50 mls/hr Q20H IV Last administered on 22:05; Admin Dose 50 MLS/HR; Start 08/09/17 at 12:30 Hydralazine HCl (Apresoline) 10 mg Q6H PRN IV SBP GREATER THAN 180; Start 08/09 at 12:30 Nitroglycerin (Nitroglycerin (Sl Tab) 0.4 Mg) 1 tab Q5M PRN SL ANGINA; Start at 12:30 Miscellaneous Information 1 ea NOTE XX ; Start 08/09/17 at 12:30 Glucose (Glutose) 15 gm Q15M PRN PO DECREASED GLUCOSE; Start 08/09/17 at 12:30 Glucose (Glutose) 22.5 gm Q15M PRN PO DECREASED GLUCOSE; Start 08/09/17 at 12: 30 Dextrose (D50w Syringe) 25 ml Q15M PRN IV DECREASED GLUCOSE; Start 08/09/17 at 12:30 Dextrose (D50w Syringe) 50 ml Q15M PRN IV DECREASED GLUCOSE; Start 08/09/17 at 12:30 Glucagon (Glucagen) 1 mg Q15M PRN IM DECREASED GLUCOSE; Start 08/09/17 at 12:30 Glucose (Glutose) 15 gm Q15M PRN BUCCAL DECREASED GLUCOSE; Start 08/09/17 at 12 :30 Diagnostic Test (Pha) (Accu-Chek) 1 ea 02 XX Last administered on 08/11/17 02: 22; Admin Dose 1 EA; Start 08/11/17 at 02:00 Insulin Glargine 20 unit 20 unit DAILY@20 SC Last administered on 08/12/17 20: 37; Admin Dose 20 UNIT; Start 08/11/17 at 21:00 Levofloxacin/ Dextrose (Levaquin 750 Mg/ D5W 150 ml (Pmx)) 150 ml @ 100 mls/hr Q24H IVPB Last administered on 08/12/17 16:49; Admin Dose 100 MLS/HR; Start at 16:00 NANCY CARVER Aug 13, 2017 10:15
--- NOTE | 2017-08-13 12:48 | CONS ---
Date/Time of Note Date/Time of Note DATE: 08/13/17 TIME: 12:47 Assessment/Plan Assessment/Plan Chief Complaint/Hosp Course SUBJECTIVE DATA: No acute changes overnight. Patient is sleeping, no fevers, nad MICROBIOLOGY: Blood and urine culture negative, fluid cx + Kleb, no anaerobes. DIAGNOSTICS: CT of the abdomen and pelvis on admission revealed lobulated enhancing fluid collection identified superior to the urinary bladder, concerning for infection/abscess with a urachal remnant. Recommend aspiration and drainage under CT guidance. Right-sided hydrosalpinx. ANTIMICROBIALS: Levaquin===> s/p Zithromax dose to cover STD, s/p Clindamycin and Zosyn. OBJECTIVE DATA: GENERAL: Well-developed, well-nourished, middle-aged woman, who is alert, in no distress. HEENT: Head atraumatic, normocephalic. Sclerae anicteric. Buccal mucosa dry. NECK: Supple. CHEST: Rise symmetrical. Breath sounds clear. HEART: S1, S2. ABDOMEN: Soft, with tenderness on palpation. Bowel sounds present. EXTREMITIES: Without cyanosis or edema. ASSESSMENT: 1. Abdominal pain secondary to right adnexal hydrosalpinx or parasalpinx==> s/p drainage cath. 2. Diabetes. 3. History of laparoscopic salpingectomy for ovarian torsion. 4. Status post drainage of pelvic abscess. 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 DW staff DW staff Problems: Consultation Date/Type/Reason Admit Date/Time Aug 09, 2017 at 11:40 Type of Consultation: ID Exam/Review of Systems Vital Signs Vitals Vital Signs Date Time Temp Pulse Resp B/P Pulse Ox O2 Delivery O2 Flow Rate FiO2 08/13/17 07:38 98.5 78 16 133/83 99 08/10/17 18:30 Room Air Intake and Output 08/12/17 08/12/17 08/13/17 15:00 23:00 07:00 Intake Total 900 ml 790 ml Output Total 810 ml Balance 900 ml -20 ml Results Result Diagram: 08/13/17 0605 08/13/17 0605 Results 24 hrs Laboratory Tests Test 08/12/17 16:54 08/12/17 20:33 08/13/17 01:16 08/13/17 06:05 Bedside Glucose 140 228 H 146 White Blood Count 7.4 Red Blood Count 3.59 L Hemoglobin 9.5 L Hematocrit 29.9 L Mean Corpuscular Volume 83.3 Mean Corpuscular Hemoglobin 26.5 L Mean Corpuscular Hemoglobin Concent 31.8 L Red Cell Distribution Width 12.0 Platelet Count 480 #H Mean Platelet Volume 9.2 Neutrophils % 67.1 Lymphocytes % 22.9 Monocytes % 5.0 Eosinophils % 4.2 Basophils % 0.4 Nucleated Red Blood Cells % 0.0 Neutrophils # 5.0 Lymphocytes # 1.7 Monocytes # 0.4 Eosinophils # 0.3 Basophils # 0.0 Nucleated Red Blood Cells # 0.0 Sodium Level 140 Potassium Level 3.9 Chloride Level 105 Carbon Dioxide Level 29 Anion Gap 10 Blood Urea Nitrogen 11 Creatinine 0.81 Glucose Level 129 Calcium Level 9.3 Test 08/13/17 07:58 08/13/17 12:01 Bedside Glucose 121 188 Medications Medications Current Medications Ondansetron HCl (Zofran Inj) 4 mg Q6H PRN IV NAUSEA AND/OR VOMITING Last administered on 08/10/17 03:13; Admin Dose 4 MG; Start 08/09/17 at 12:30 Acetaminophen (Tylenol Tab) 650 mg Q6H PRN PO PAIN LEVEL 1-3 OR FEVER Last administered on 08/11/17 02:23; Admin Dose 650 MG; Start 08/09/17 at 12:30 Acetaminophen/ Hydrocodone Bitart ([place] (5/325)) 1 tab Q6H PRN PO MODERATE PAIN LEVEL 4-6 Last administered on 08/11/17 23:28; Admin Dose 1 TAB; Start 10/15 at 12:30 Morphine Sulfate (morphine) 2 mg Q4H PRN IV SEVERE PAIN LEVEL 7-10 Last administered on 08/11/17 19:36; Admin Dose 2 MG; Start 08/09/17 at 12:30 Docusate Sodium (Colace) 100 mg Q12H PRN PO CONSTIPATION; Start 08/09/17 at 12: 30 Magnesium Hydroxide (Milk Of Mag) 30 ml DAILY PRN PO CONSTIPATION; Start at 12:30 Sodium Biphosphate/ Sodium Phosphate (Fleet Enema) 133 ml DAILY PRN [place] CONSTIPATION; Start 08/09/17 at 12:30 Pantoprazole (Protonix Tab) 40 mg DAILY@06 PO Last administered on 08/13/17 05 :54; Admin Dose 40 MG; Start 08/09/17 at 12:30 Heparin Sodium (Porcine) (Heparin (5000 Units/0.5 ml)) 5,000 unit Q12 SC Last administered on 08/10/17 22:57; Admin Dose 5,000 UNIT; Start 08/09/17 at 12:30 Lorazepam 0.5 mg 0.5 mg Q6H PRN IV ANXIETY; Start 08/09/17 at 12:30 Sodium Chloride (NS) 1,000 ml @ 50 mls/hr Q20H IV Last administered on 22:05; Admin Dose 50 MLS/HR; Start 08/09/17 at 12:30 Hydralazine HCl (Apresoline) 10 mg Q6H PRN IV SBP GREATER THAN 180; Start 08/09 at 12:30 Nitroglycerin (Nitroglycerin (Sl Tab) 0.4 Mg) 1 tab Q5M PRN SL ANGINA; Start at 12:30 Miscellaneous Information 1 ea NOTE XX ; Start 08/09/17 at 12:30 Glucose (Glutose) 15 gm Q15M PRN PO DECREASED GLUCOSE; Start 08/09/17 at 12:30 Glucose (Glutose) 22.5 gm Q15M PRN PO DECREASED GLUCOSE; Start 08/09/17 at 12: 30 Dextrose (D50w Syringe) 25 ml Q15M PRN IV DECREASED GLUCOSE; Start 08/09/17 at 12:30 Dextrose (D50w Syringe) 50 ml Q15M PRN IV DECREASED GLUCOSE; Start 08/09/17 at 12:30 Glucagon (Glucagen) 1 mg Q15M PRN IM DECREASED GLUCOSE; Start 08/09/17 at 12:30 Glucose (Glutose) 15 gm Q15M PRN BUCCAL DECREASED GLUCOSE; Start 08/09/17 at 12 :30 Diagnostic Test (Pha) (Accu-Chek) 1 ea 02 XX Last administered on 08/11/17 02: 22; Admin Dose 1 EA; Start 08/11/17 at 02:00 Insulin Glargine 20 unit 20 unit DAILY@20 SC Last administered on 08/12/17 20: 37; Admin Dose 20 UNIT; Start 08/11/17 at 21:00 Levofloxacin/ Dextrose (Levaquin 750 Mg/ D5W 150 ml (Pmx)) 150 ml @ 100 mls/hr Q24H IVPB Last administered on 08/12/17t 16:49; Admin Dose 100 MLS/HR; Start at 16:00 CURT MCGOWAN NP Aug 13, 2017 12:48
--- NOTE | 2017-08-13 12:59 | QN ---
Documentation Comment patient is seen at the bedside,Symptoms improved afebrile VS stable Gen NAD Abd soft NT ND Drain is still draining the brown fluid Genitalia Deffered --->Continue the same orders --->close Observation DEMOND MAXWELL M.D. Aug 13, 2017 12:59
[2017-08-13] MEDS: LEVOFLOXACIN 750MG/D5W (PMX) 150 ML IVPB SCH (15:12)
[2017-08-13] MEDS: SOD CHLORIDE 0.9% 1,000 ML IV SCH (19:02)
[2017-08-13 19:05] VITALS: BP 108/63; PULSE 86; RESP 18
[2017-08-13] MEDS: INSULIN GLARGINE [LANtus] 3 ML PEN SC SCH (20:31)
[2017-08-13 20:57] VITALS: BP 128/83; RESP 20
[2017-08-14 02:00] VITALS: BP 107/58; RESP 18
[2017-08-14] MEDS: ACCU-CHEK XX SCH (02:00)
[2017-08-14] MEDS: PANTOPRAZOLE (EC) 40 MG TAB PO SCH (05:41)
[2017-08-14 06:21] LABS: WHITE BLOOD COUNT 8.3 10^3/ul (4.8-10.8)
[2017-08-14 06:22] LABS: BASOPHILS % 0.5 % (0.0-2.0); EOSINOPHILS # 0.3 10^3/ul (0.0-0.5); EOSINOPHILS % 3.3 % (0.0-7.0); HEMATOCRIT 32.3 % (37.0-47.0); HEMOGLOBIN 9.8 g/dl (12.0-16.0); LYMPHOCYTES # 1.9 10^3/ul (0.8-2.9); LYMPHOCYTES % 23.2 % (15.0-51.0); MEAN CORPUSCULAR HEMOGLOBIN 25.1 pg (29.0-33.0); MEAN CORPUSCULAR HGB CONC 30.3 g/dl (32.0-37.0); MEAN CORPUSCULAR VOLUME 82.6 fl (82.0-101.0); MEAN PLATELET VOLUME 9.3 fl (7.4-10.4); MONOCYTE # 0.5 10^3/ul (0.3-0.9); MONOCYTES % 6.3 % (0.0-11.0); NEUTROPHIL # 5.5 10^3/ul (1.6-7.5); NEUTROPHILS % 66.5 % (39.0-77.0); PLATELET COUNT 543 10^3/UL (140-415); RED BLOOD COUNT 3.91 10^6/ul (4.20-5.40); RED CELL DISTRIBUTION WIDTH 12.3 % (11.5-14.5)
[2017-08-14 06:43] LABS: CALCIUM 9.5 mg/dl (8.4-10.2); CREATININE 0.88 mg/dl (0.44-1.00); POTASSIUM 4.2 mmol/L (3.5-5.1)
[2017-08-14 06:56] LABS: MAGNESIUM 1.6 mg/dl (1.7-2.5); PHOSPHORUS 3.3 mg/dl (2.5-4.9)
[2017-08-14 07:26] VITALS: BP 121/79; RESP 16
--- NOTE | 2017-08-14 07:39 | QN ---
Documentation Comment HD #[id number] s/p laparoscopic left salpingectomy for ovarian torsion in February 2017 and s/ p drainage of pelvic abscess in April [address] [facility] who returns with abdominal pain, TOA and right hydrosalpinx s/p drainage by IR She is afebrile, WBC 8.3 on IV ABX Abd soft, NT/ND minimal drainage noted- mostly yellow fluid Ext Nt A/P Continue with present management Consider removal of drain once no drainage obtained ARIANNA ROSENBERG MD Aug 14, 2017 07:39
[2017-08-14] MEDS: INSULIN ASPART [NOVOLOG] 3 ML PEN SC SCH ×7 (08:54→21:00)
[2017-08-14] MEDS: HEPARIN 5,000 UNIT/0.5 ML VIAL SC SCH ×2 (09:00→21:00)
--- NOTE | 2017-08-14 12:09 | PN ---
Date/Time of Note Date/Time of Note DATE: 08/14/17 TIME: 12:08 Assessment/Plan VTE Prophylaxis VTE Prophylaxis Intervention: heparin Lines/Catheters IV C[facility] Type (from [facility] Peripheral IV Assessment/Plan Chief Complaint/Hosp Course ASSESSMENT/PLAN: A 37-year-old, with pelvic pain for 3 days with findings of right adnexa hydrosalpinx and possible abscess and ovarian cyst, status post CT- guided pelvic abscess drainage. 1. Pelvic pain. Likely secondary to right adnexa hydrosalpinx or pyosalpinx, again status post CT-guided pelvic abscess drainage 4 days ago. Wound culture positive for Klebsiella. -Follow up ACQUISITION PROFESSIONAL infectious disease recommendations, as well as infectious disease recommendations. Continue to monitor output from drain; recommending a repeat scan in the next 1 day or so as well, if the fluid collection has not decreased in size then, they may consider laparoscopic procedure for drainage at that time. -Continue broad-spectrum antibiotics-we will add Levaquin based on sensitivities, IV fluids, antiemetics and pain control. - Tylenol p.r.n. pain and fevers, follow-up final culture results 2. Diabetes-sugars improved, A1c = 12.3. Sugars stable - continue sliding scale, will slightly increase both short acting and long- acting insulin dosages 3. Gastrointestinal prophylaxis, proton pump inhibitor. 4. Deep vein thrombosis prophylaxis. Heparin subcu. Problems: Subjective 24 Hr Interval Summary Free Text/Dictation No acute events overnight, seen by ACQUISITION PROFESSIONAL team. Exam/Review of Systems Vital Signs Vitals Vital Signs Date Time Temp Pulse Resp B/P Pulse Ox O2 Delivery O2 Flow Rate FiO2 08/14/17 07:26 97.5 78 16 121/79 98 08/13/17 19:05 Room Air Intake and Output 08/13/17 08/13/17 08/14/17 15:00 23:00 07:00 Intake Total 1940 ml Output Total 10 ml Balance 1930 ml Exam GENERAL: Patient lying in bed, otherwise, no acute distress. HEENT: Pupils equal, round, and react to light. Neck is supple. Intact. NECK: Supple. No thyromegaly. LUNGS: Clear to auscultation bilaterally. CARDIOVASCULAR: S1, S2. No murmurs, rubs or gallops. ABDOMEN: less tenderness to palpation, right-sided flank. No rebound or guarding. Normal bowel sounds otherwise. MUSCULOSKELETAL: No lower extremity edema bilaterally. NEUROLOGIC: No focal deficits. Results Result Diagram: 08/14/17 0540 08/14/17 0540 Results 24 hrs Laboratory Tests Test 08/13/17 17:28 08/13/17 20:27 08/14/17 05:40 08/14/17 08:50 Bedside Glucose 227 H 144 149 White Blood Count 8.3 Red Blood Count 3.91 L Hemoglobin 9.8 L Hematocrit 32.3 L Mean Corpuscular Volume 82.6 Mean Corpuscular Hemoglobin 25.1 L Mean Corpuscular Hemoglobin Concent 30.3 L Red Cell Distribution Width 12.3 Platelet Count 543 H Mean Platelet Volume 9.3 Neutrophils % 66.5 Lymphocytes % 23.2 Monocytes % 6.3 Eosinophils % 3.3 Basophils % 0.5 Nucleated Red Blood Cells % 0.0 Neutrophils # 5.5 Lymphocytes # 1.9 Monocytes # 0.5 Eosinophils # 0.3 Basophils # 0.0 Nucleated Red Blood Cells # 0.0 Sodium Level 143 Potassium Level 4.2 Chloride Level 107 Carbon Dioxide Level 28 Anion Gap 12 Blood Urea Nitrogen 14 Creatinine 0.88 Glucose Level 115 Calcium Level 9.5 Phosphorus Level 3.3 Magnesium Level 1.6 L Test 08/14/17 11:56 Bedside Glucose 97 Medications Medications Current Medications Ondansetron HCl (Zofran Inj) 4 mg Q6H PRN IV NAUSEA AND/OR VOMITING Last administered on 08/10/17 03:13; Admin Dose 4 MG; Start 08/09/17 at 12:30 Acetaminophen (Tylenol Tab) 650 mg Q6H PRN PO PAIN LEVEL 1-3 OR FEVER Last administered on 08/11/17 02:23; Admin Dose 650 MG; Start 08/09/17 at 12:30 Acetaminophen/ Hydrocodone Bitart ([place] (5/325)) 1 tab Q6H PRN PO MODERATE PAIN LEVEL 4-6 Last administered on 08/11/17 23:28; Admin Dose 1 TAB; Start 10/15 at 12:30 Morphine Sulfate (morphine) 2 mg Q4H PRN IV SEVERE PAIN LEVEL 7-10 Last administered on 08/11/17 19:36; Admin Dose 2 MG; Start 08/09/17 at 12:30 Docusate Sodium (Colace) 100 mg Q12H PRN PO CONSTIPATION; Start 08/09/17 at 12: 30 Magnesium Hydroxide (Milk Of Mag) 30 ml DAILY PRN PO CONSTIPATION; Start at 12:30 Sodium Biphosphate/ Sodium Phosphate (Fleet Enema) 133 ml DAILY PRN [place] CONSTIPATION; Start 08/09/17 at 12:30 Pantoprazole (Protonix Tab) 40 mg DAILY@06 PO Last administered on 08/14/17 05 :41; Admin Dose 40 MG; Start 08/09/17 at 12:30 Heparin Sodium (Porcine) (Heparin (5000 Units/0.5 ml)) 5,000 unit Q12 SC Last administered on 08/10/17 22:57; Admin Dose 5,000 UNIT; Start 08/09/17 at 12:30 Lorazepam 0.5 mg 0.5 mg Q6H PRN IV ANXIETY; Start 08/09/17 at 12:30 Sodium Chloride (NS) 1,000 ml @ 50 mls/hr Q20H IV Last administered on 19:02; Admin Dose 50 MLS/HR; Start 08/09/17 at 12:30 Hydralazine HCl (Apresoline) 10 mg Q6H PRN IV SBP GREATER THAN 180; Start 08/09 at 12:30 Nitroglycerin (Nitroglycerin (Sl Tab) 0.4 Mg) 1 tab Q5M PRN SL ANGINA; Start at 12:30 Miscellaneous Information 1 ea NOTE XX ; Start 08/09/17 at 12:30 Glucose (Glutose) 15 gm Q15M PRN PO DECREASED GLUCOSE; Start 08/09/17 at 12:30 Glucose (Glutose) 22.5 gm Q15M PRN PO DECREASED GLUCOSE; Start 08/09/17 at 12: 30 Dextrose (D50w Syringe) 25 ml Q15M PRN IV DECREASED GLUCOSE; Start 08/09/17 at 12:30 Dextrose (D50w Syringe) 50 ml Q15M PRN IV DECREASED GLUCOSE; Start 08/09/17 at 12:30 Glucagon (Glucagen) 1 mg Q15M PRN IM DECREASED GLUCOSE; Start 08/09/17 at 12:30 Glucose (Glutose) 15 gm Q15M PRN BUCCAL DECREASED GLUCOSE; Start 08/09/17 at 12 :30 Diagnostic Test (Pha) (Accu-Chek) 1 ea 02 XX Last administered on 08/11/17 02: 22; Admin Dose 1 EA; Start 08/11/17 at 02:00 Insulin Glargine 20 unit 20 unit DAILY@20 SC Last administered on 08/13/17 20: 31; Admin Dose 20 UNIT; Start 08/11/17 at 21:00 Levofloxacin/ Dextrose 150 ml @ 100 mls/hr Q24H IVPB Last administered on 08/13 15:12; Admin Dose 100 MLS/HR; Start 08/12/17 at 16:00 Magnesium Sulfate/ Dextrose (Magnesium Sulfate 1 Gm/D5W) 100 ml @ 100 mls/hr ONCE ONCE IVPB ; Start 08/14/17 at 12:30; Stop 08/14/17 at 13:29; Status NANCY DOWNEY Aug 14, 2017 12:09
[2017-08-14] MEDS ORDERED: MAGNESIUM SULFATE 1 GM/D5W 100 ML IVPB ONE (13:30)
[2017-08-14 14:12] VITALS: BP 118/74; RESP 16
[2017-08-14] MEDS: SOD CHLORIDE 0.9% 1,000 ML IV SCH (16:22)
[2017-08-14] MEDS: LEVOFLOXACIN 750MG/D5W (PMX) 150 ML IVPB SCH (16:22)
--- NOTE | 2017-08-14 16:35 | CONS ---
Date/Time of Note Date/Time of Note DATE: 08/14/17 TIME: 16:34 Assessment/Plan Assessment/Plan Chief Complaint/Hosp Course ID PROGRESS NOTE CURRENT ABX: => Levaquin===> s/p Zithromax dose to cover STD, s/p Clindamycin and Zosyn. 24H INTERVAL SUMMARY * Clinically stable, A/A/O eating food brought in by 2 male visitors, no fevers , NAD, no complaints * MICROBIOLOGY: Blood and urine culture negative, fluid cx + Kleb, no anaerobes. EXAM GEN: VSS, NAD HEENT: Unremarkable NECK: supple CVS: RRR CHEST: Equal chest rise bilaterally without dyspnea on observation ABD: Deferred, at patient's request male visitors in room EXT: warm SKIN: No rash, no diaphoresis ID ASSESSMENT 37 yo F admit with: 1. Abdominal pain secondary to right adnexal hydrosalpinx or parasalpinx==> s/p drainage cath. 2. Diabetes. 3. History of laparoscopic salpingectomy for ovarian torsion. 4. Status post drainage of pelvic abscess. INVASIVES: PIV ABX ALLERGY: KNDA CURRENT ABX: => Levaquin===> s/p Zithromax dose to cover STD, s/p Clindamycin and Zosyn. ID RECOMMENDATIONS 1. Continue Levaquin will f/u tomorrow . Problems: Consultation Date/Type/Reason Admit Date/Time Aug 09, 2017 at 11:40 Initial Consult Date Type of Consultation: ID Exam/Review of Systems Vital Signs Vitals Vital Signs Date Time Temp Pulse Resp B/P Pulse Ox O2 Delivery O2 Flow Rate FiO2 08/14/17 14:12 97.9 81 16 118/74 99 08/13/17 19:05 Room Air Intake and Output 08/13/17 08/13/17 08/14/17 15:00 23:00 07:00 Intake Total 1940 ml Output Total 10 ml Balance 1930 ml Results Result Diagram: 08/14/17 0540 08/14/17 0540 Results 24 hrs Laboratory Tests Test 08/13/17 17:28 08/13/17 20:27 08/14/17 05:40 08/14/17 08:50 Bedside Glucose 227 H 144 149 White Blood Count 8.3 Red Blood Count 3.91 L Hemoglobin 9.8 L Hematocrit 32.3 L Mean Corpuscular Volume 82.6 Mean Corpuscular Hemoglobin 25.1 L Mean Corpuscular Hemoglobin Concent 30.3 L Red Cell Distribution Width 12.3 Platelet Count 543 H Mean Platelet Volume 9.3 Neutrophils % 66.5 Lymphocytes % 23.2 Monocytes % 6.3 Eosinophils % 3.3 Basophils % 0.5 Nucleated Red Blood Cells % 0.0 Neutrophils # 5.5 Lymphocytes # 1.9 Monocytes # 0.5 Eosinophils # 0.3 Basophils # 0.0 Nucleated Red Blood Cells # 0.0 Sodium Level 143 Potassium Level 4.2 Chloride Level 107 Carbon Dioxide Level 28 Anion Gap 12 Blood Urea Nitrogen 14 Creatinine 0.88 Glucose Level 115 Calcium Level 9.5 Phosphorus Level 3.3 Magnesium Level 1.6 L Test 08/14/17 11:56 Bedside Glucose 97 Medications Medications Current Medications Ondansetron HCl (Zofran Inj) 4 mg Q6H PRN IV NAUSEA AND/OR VOMITING Last administered on 08/10/17 03:13; Admin Dose 4 MG; Start 08/09/17 at 12:30 Acetaminophen (Tylenol Tab) 650 mg Q6H PRN PO PAIN LEVEL 1-3 OR FEVER Last administered on 08/11/17 02:23; Admin Dose 650 MG; Start 08/09/17 at 12:30 Acetaminophen/ Hydrocodone Bitart ([place] (5/325)) 1 tab Q6H PRN PO MODERATE PAIN LEVEL 4-6 Last administered on 08/11/17 23:28; Admin Dose 1 TAB; Start 10/15 at 12:30 Morphine Sulfate (morphine) 2 mg Q4H PRN IV SEVERE PAIN LEVEL 7-10 Last administered on 08/11/17 19:36; Admin Dose 2 MG; Start 08/09/17 at 12:30 Docusate Sodium (Colace) 100 mg Q12H PRN PO CONSTIPATION; Start 08/09/17 at 12: 30 Magnesium Hydroxide (Milk Of Mag) 30 ml DAILY PRN PO CONSTIPATION; Start at 12:30 Sodium Biphosphate/ Sodium Phosphate (Fleet Enema) 133 ml DAILY PRN [place] CONSTIPATION; Start 08/09/17 at 12:30 Pantoprazole (Protonix Tab) 40 mg DAILY@06 PO Last administered on 08/14/17 05 :41; Admin Dose 40 MG; Start 08/09/17 at 12:30 Heparin Sodium (Porcine) (Heparin (5000 Units/0.5 ml)) 5,000 unit Q12 SC Last administered on 08/10/17 22:57; Admin Dose 5,000 UNIT; Start 08/09/17 at 12:30 Lorazepam 0.5 mg 0.5 mg Q6H PRN IV ANXIETY; Start 08/09/17 at 12:30 Sodium Chloride (NS) 1,000 ml @ 50 mls/hr Q20H IV Last administered on 16:22; Admin Dose 50 MLS/HR; Start 08/09/17 at 12:30 Hydralazine HCl (Apresoline) 10 mg Q6H PRN IV SBP GREATER THAN 180; Start 08/09 at 12:30 Nitroglycerin (Nitroglycerin (Sl Tab) 0.4 Mg) 1 tab Q5M PRN SL ANGINA; Start at 12:30 Miscellaneous Information 1 ea NOTE XX ; Start 08/09/17 at 12:30 Glucose (Glutose) 15 gm Q15M PRN PO DECREASED GLUCOSE; Start 08/09/17 at 12:30 Glucose (Glutose) 22.5 gm Q15M PRN PO DECREASED GLUCOSE; Start 08/09/17 at 12: 30 Dextrose (D50w Syringe) 25 ml Q15M PRN IV DECREASED GLUCOSE; Start 08/09/17 at 12:30 Dextrose (D50w Syringe) 50 ml Q15M PRN IV DECREASED GLUCOSE; Start 08/09/17 at 12:30 Glucagon (Glucagen) 1 mg Q15M PRN IM DECREASED GLUCOSE; Start 08/09/17 at 12:30 Glucose (Glutose) 15 gm Q15M PRN BUCCAL DECREASED GLUCOSE; Start 08/09/17 at 12 :30 Diagnostic Test (Pha) 1 ea 1 ea 02 XX Last administered on 08/11/17 02:22; Admin Dose 1 EA; Start 08/11/17 at 02:00 Levofloxacin/ Dextrose (Levaquin 750 Mg/ D5W 150 ml (Pmx)) 150 ml @ 100 mls/hr Q24H IVPB Last administered on 08/14/17 16:22; Admin Dose 100 MLS/HR; Start at 16:00 Insulin Glargine (Lantus) 26 unit DAILY@20 SC ; Start 08/14/17 at 20:00 SUNSHINE FERRIS NP Aug 14, 2017 16:35
[2017-08-14] MEDS: NICOTINE (21 MG/24 HR) PATCH TRANSDERM SCH (18:45)
[2017-08-14 20:18] VITALS: BP 112/75; RESP 16
[2017-08-15] MEDS: INSULIN GLARGINE [LANtus] 3 ML PEN SC SCH ×2 (00:01→20:16)
[2017-08-15] MEDS: ACCU-CHEK XX SCH (02:00)
[2017-08-15 02:20] VITALS: BP 110/58; RESP 18
[2017-08-15] MEDS: PANTOPRAZOLE (EC) 40 MG TAB PO SCH (05:35)
[2017-08-15 06:18] LABS: BASOPHIL # 0.1 10^3/ul (0.0-0.1); BASOPHILS % 0.6 % (0.0-2.0); EOSINOPHILS # 0.3 10^3/ul (0.0-0.5); EOSINOPHILS % 3.2 % (0.0-7.0); HEMATOCRIT 33.5 % (37.0-47.0); HEMOGLOBIN 10.4 g/dl (12.0-16.0); LYMPHOCYTES # 2.2 10^3/ul (0.8-2.9); LYMPHOCYTES % 26.2 % (15.0-51.0); MEAN CORPUSCULAR HEMOGLOBIN 25.7 pg (29.0-33.0); MEAN CORPUSCULAR VOLUME 82.7 fl (82.0-101.0); MEAN PLATELET VOLUME 9.2 fl (7.4-10.4); MONOCYTE # 0.5 10^3/ul (0.3-0.9); MONOCYTES % 5.6 % (0.0-11.0); NEUTROPHIL # 5.4 10^3/ul (1.6-7.5); PLATELET COUNT 589 10^3/UL (140-415); RED BLOOD COUNT 4.05 10^6/ul (4.20-5.40); RED CELL DISTRIBUTION WIDTH 12.4 % (11.5-14.5); WHITE BLOOD COUNT 8.5 10^3/ul (4.8-10.8)
[2017-08-15 07:14] LABS: CALCIUM 9.5 mg/dl (8.4-10.2); CREATININE 0.95 mg/dl (0.44-1.00); POTASSIUM 4.2 mmol/L (3.5-5.1)
[2017-08-15 07:22] VITALS: BP 115/68; RESP 16
[2017-08-15] MEDS: HEPARIN 5,000 UNIT/0.5 ML VIAL SC SCH ×2 (07:46→20:13)
[2017-08-15] MEDS: NICOTINE (21 MG/24 HR) PATCH TRANSDERM SCH (07:46)
[2017-08-15] MEDS: INSULIN ASPART [NOVOLOG] 3 ML PEN SC SCH ×7 (07:48→20:12)
[2017-08-15] MEDS: SOD CHLORIDE 0.9% 1,000 ML IV SCH ×2 (09:35→14:55)
--- NOTE | 2017-08-15 09:52 | PN ---
Date/Time of Note Date/Time of Note DATE: 08/15/17 TIME: 09:50 Assessment/Plan VTE Prophylaxis VTE Prophylaxis Intervention: heparin Lines/Catheters IV Catheter Type (from [facility]): Peripheral IV Assessment/Plan Chief Complaint/Hosp Course ASSESSMENT/PLAN: A 37-year-old, with pelvic pain for 3 days with findings of right adnexa hydrosalpinx and possible abscess and ovarian cyst, status post CT- guided pelvic abscess drainage. 1. Pelvic pain. Likely secondary to right adnexa hydrosalpinx or pyosalpinx, again status post CT-guided pelvic abscess drainage 5 days ago. Wound culture positive for Klebsiella. -Follow up TIRE ADJUSTER infectious disease recommendations, as well as infectious disease recommendations. Continue to monitor output from drain; recommending a repeat scan in the next 1 day or so as well, if the fluid collection has not decreased in size then, they may consider laparoscopic procedure for drainage at that time. -Continue broad-spectrum antibiotics- Levaquin based on sensitivities, IV fluids, antiemetics and pain control. - Tylenol p.r.n. pain and fevers, follow-up final culture results 2. Diabetes-sugars improved, A1c = 12.3. Sugars stable - continue sliding scale, as well as short acting and long-acting insulin dosages 3. Gastrointestinal prophylaxis, proton pump inhibitor. 4. Deep vein thrombosis prophylaxis. Heparin subcu. Problems: Subjective 24 Hr Interval Summary Free Text/Dictation No acute events overnight. Exam/Review of Systems Vital Signs Vitals Vital Signs Date Time Temp Pulse Resp B/P Pulse Ox O2 Delivery O2 Flow Rate FiO2 08/15/17 07:22 98.2 80 16 115/68 98 08/13/17 19:05 Room Air Intake and Output 08/14/17 08/14/17 08/15/17 15:00 23:00 07:00 Intake Total 1520 ml 1155 ml 550 ml Output Total 5 ml 25 ml Balance 1515 ml 1130 ml 550 ml Exam GENERAL: Patient lying in bed, otherwise, no acute distress. HEENT: Pupils equal, round, and react to light. Neck is supple. Intact. NECK: Supple. No thyromegaly. LUNGS: Clear to auscultation bilaterally. CARDIOVASCULAR: S1, S2. No murmurs, rubs or gallops. ABDOMEN: less tenderness to palpation, right-sided flank. No rebound or guarding. Normal bowel sounds otherwise. MUSCULOSKELETAL: No lower extremity edema bilaterally. NEUROLOGIC: No focal deficits. Results Result Diagram: 08/15/17 0535 08/15/17 0535 Results 24 hrs Laboratory Tests Test 08/14/17 11:56 08/14/17 17:08 08/14/17 23:58 08/15/17 05:35 Bedside Glucose 97 196 124 White Blood Count 8.5 Red Blood Count 4.05 L Hemoglobin 10.4 L Hematocrit 33.5 L Mean Corpuscular Volume 82.7 Mean Corpuscular Hemoglobin 25.7 L Mean Corpuscular Hemoglobin Concent 31.0 L Red Cell Distribution Width 12.4 Platelet Count 589 H Mean Platelet Volume 9.2 Neutrophils % 64.0 Lymphocytes % 26.2 Monocytes % 5.6 Eosinophils % 3.2 Basophils % 0.6 Nucleated Red Blood Cells % 0.0 Neutrophils # 5.4 Lymphocytes # 2.2 Monocytes # 0.5 Eosinophils # 0.3 Basophils # 0.1 Nucleated Red Blood Cells # 0.0 Sodium Level 141 Potassium Level 4.2 Chloride Level 106 Carbon Dioxide Level 25 Anion Gap 14 Blood Urea Nitrogen 18 Creatinine 0.95 Glucose Level 157 Calcium Level 9.5 Test 08/15/17 07:48 Bedside Glucose 132 Medications Medications Current Medications Ondansetron HCl (Zofran Inj) 4 mg Q6H PRN IV NAUSEA AND/OR VOMITING Last administered on 08/10/17 03:13; Admin Dose 4 MG; Start 08/09/17 at 12:30 Acetaminophen (Tylenol Tab) 650 mg Q6H PRN PO PAIN LEVEL 1-3 OR FEVER Last administered on 08/11/17 02:23; Admin Dose 650 MG; Start 08/09/17 at 12:30 Acetaminophen/ Hydrocodone Bitart ([place] (5/325)) 1 tab Q6H PRN PO MODERATE PAIN LEVEL 4-6 Last administered on 08/11/17 23:28; Admin Dose 1 TAB; Start 10/15 at 12:30 Morphine Sulfate (morphine) 2 mg Q4H PRN IV SEVERE PAIN LEVEL 7-10 Last administered on 08/11/17 19:36; Admin Dose 2 MG; Start 08/09/17 at 12:30 Docusate Sodium (Colace) 100 mg Q12H PRN PO CONSTIPATION; Start 08/09/17 at 12: 30 Magnesium Hydroxide (Milk Of Mag) 30 ml DAILY PRN PO CONSTIPATION; Start at 12:30 Sodium Biphosphate/ Sodium Phosphate (Fleet Enema) 133 ml DAILY PRN [place] CONSTIPATION; Start 08/09/17 at 12:30 Pantoprazole (Protonix Tab) 40 mg DAILY@06 PO Last administered on 08/15/17 05 :35; Admin Dose 40 MG; Start 08/09/17 at 12:30 Heparin Sodium (Porcine) (Heparin (5000 Units/0.5 ml)) 5,000 unit Q12 SC Last administered on 08/10/17 22:57; Admin Dose 5,000 UNIT; Start 08/09/17 at 12:30 Lorazepam 0.5 mg 0.5 mg Q6H PRN IV ANXIETY; Start 08/09/17 at 12:30 Sodium Chloride (NS) 1,000 ml @ 50 mls/hr Q20H IV Last administered on 16:22; Admin Dose 50 MLS/HR; Start 08/09/17 at 12:30 Hydralazine HCl (Apresoline) 10 mg Q6H PRN IV SBP GREATER THAN 180; Start 08/09 at 12:30 Nitroglycerin (Nitroglycerin (Sl Tab) 0.4 Mg) 1 tab Q5M PRN SL ANGINA; Start at 12:30 Miscellaneous Information 1 ea NOTE XX ; Start 08/09/17 at 12:30 Glucose (Glutose) 15 gm Q15M PRN PO DECREASED GLUCOSE; Start 08/09/17 at 12:30 Glucose (Glutose) 22.5 gm Q15M PRN PO DECREASED GLUCOSE; Start 08/09/17 at 12: 30 Dextrose (D50w Syringe) 25 ml Q15M PRN IV DECREASED GLUCOSE; Start 08/09/17 at 12:30 Dextrose (D50w Syringe) 50 ml Q15M PRN IV DECREASED GLUCOSE; Start 08/09/17 at 12:30 Glucagon (Glucagen) 1 mg Q15M PRN IM DECREASED GLUCOSE; Start 08/09/17 at 12:30 Glucose (Glutose) 15 gm Q15M PRN BUCCAL DECREASED GLUCOSE; Start 08/09/17 at 12 :30 Diagnostic Test (Pha) 1 ea 1 ea 02 XX Last administered on 08/11/17 02:22; Admin Dose 1 EA; Start 08/11/17 at 02:00 Levofloxacin/ Dextrose (Levaquin 750 Mg/ D5W 150 ml (Pmx)) 150 ml @ 100 mls/hr Q24H IVPB Last administered on 08/14/17 16:22; Admin Dose 100 MLS/HR; Start at 16:00 Insulin Glargine (Lantus) 26 unit DAILY@20 SC Last administered on 08/15/17 00 :01; Admin Dose 26 UNIT; Start 08/14/17 at 20:00 Nicotine (Nicoderm 21 Mg/ 24hr) 1 patch DAILY TRANSDERM ; Start 08/14/17 at 18: 45 NANCY CARVER Aug 15, 2017 09:52
[2017-08-15 13:41] VITALS: BP 117/74; RESP 16
[2017-08-15] MEDS: LEVOFLOXACIN 750MG/D5W (PMX) 150 ML IVPB SCH (16:05)
--- NOTE | 2017-08-15 16:53 | QN ---
Documentation Comment pt feeling better and minimla pain vss exam wnl pigtail output today minimal a/p pelvic abscess with pt feeling better and minimal output will discuss with IR and ID silvino for possible DC home if pt stable and minimal output MERON MCDANIELS MD Aug 15, 2017 16:53
[2017-08-15 19:39] VITALS: BP 120/60; RESP 20
--- NOTE | 2017-08-15 20:21 | CONS ---
Date/Time of Note Date/Time of Note DATE: 08/15/17 TIME: 20:19 Assessment/Plan Assessment/Plan Chief Complaint/Hosp Course ID PROGRESS NOTE CURRENT ABX: => Levaquin===> s/p Zithromax dose to cover STD, s/p Clindamycin and Zosyn. 24H INTERVAL SUMMARY * No new events, resting comfortably, A/A/O * Admit with right adnexa hydrosalpinx and possible abscess and ovarian cyst, status post CT-guided pelvic abscess drainage. * MICROBIOLOGY: Blood and urine culture negative, fluid cx + Kleb, no anaerobes. EXAM GEN: VSS, NAD HEENT: Unremarkable NECK: supple CVS: RRR CHEST: Equal chest rise bilaterally without dyspnea on observation ABD: Deferred, at patient's request male visitors in room EXT: warm SKIN: No rash, no diaphoresis ID ASSESSMENT 37 yo F admit with: 1. Abdominal pain secondary to right adnexal hydrosalpinx or parasalpinx==> s/p drainage cath. 2. Diabetes. 3. History of laparoscopic salpingectomy for ovarian torsion. 4. Status post drainage of pelvic abscess. INVASIVES: PIV ABX ALLERGY: KNDA CURRENT ABX: => Levaquin===> s/p Zithromax dose to cover STD, s/p Clindamycin and Zosyn. ID RECOMMENDATIONS 1. Continue Levaquin => Final recs per ID follow up tomorrow . Problems: Consultation Date/Type/Reason Admit Date/Time Aug 09, 2017 at 11:40 Type of Consultation: ID Exam/Review of Systems Vital Signs Vitals Vital Signs Date Time Temp Pulse Resp B/P Pulse Ox O2 Delivery O2 Flow Rate FiO2 08/15/17 19:39 98.1 80 20 120/60 97 08/13/17 19:05 Room Air Intake and Output 08/14/17 08/14/17 08/15/17 15:00 23:00 07:00 Intake Total 1520 ml 1155 ml 550 ml Output Total 5 ml 25 ml Balance 1515 ml 1130 ml 550 ml Results Result Diagram: 08/15/17 0535 08/15/17 0535 Results 24 hrs Laboratory Tests Test 08/14/17 23:58 08/15/17 05:35 08/15/17 07:48 08/15/17 12:05 Bedside Glucose 124 132 92 White Blood Count 8.5 Red Blood Count 4.05 L Hemoglobin 10.4 L Hematocrit 33.5 L Mean Corpuscular Volume 82.7 Mean Corpuscular Hemoglobin 25.7 L Mean Corpuscular Hemoglobin Concent 31.0 L Red Cell Distribution Width 12.4 Platelet Count 589 H Mean Platelet Volume 9.2 Neutrophils % 64.0 Lymphocytes % 26.2 Monocytes % 5.6 Eosinophils % 3.2 Basophils % 0.6 Nucleated Red Blood Cells % 0.0 Neutrophils # 5.4 Lymphocytes # 2.2 Monocytes # 0.5 Eosinophils # 0.3 Basophils # 0.1 Nucleated Red Blood Cells # 0.0 Sodium Level 141 Potassium Level 4.2 Chloride Level 106 Carbon Dioxide Level 25 Anion Gap 14 Blood Urea Nitrogen 18 Creatinine 0.95 Glucose Level 157 Calcium Level 9.5 Phosphorus Level 4.3 Magnesium Level 1.8 Test 08/15/17 13:51 08/15/17 20:11 Bedside Glucose 91 90 Medications Medications Current Medications Ondansetron HCl (Zofran Inj) 4 mg Q6H PRN IV NAUSEA AND/OR VOMITING Last administered on 08/10/17 03:13; Admin Dose 4 MG; Start 08/09/17 at 12:30 Acetaminophen (Tylenol Tab) 650 mg Q6H PRN PO PAIN LEVEL 1-3 OR FEVER Last administered on 08/11/17 02:23; Admin Dose 650 MG; Start 08/09/17 at 12:30 Acetaminophen/ Hydrocodone Bitart ([place] (5/325)) 1 tab Q6H PRN PO MODERATE PAIN LEVEL 4-6 Last administered on 08/11/17 23:28; Admin Dose 1 TAB; Start 10/15 at 12:30 Morphine Sulfate (morphine) 2 mg Q4H PRN IV SEVERE PAIN LEVEL 7-10 Last administered on 08/11/17 19:36; Admin Dose 2 MG; Start 08/09/17 at 12:30 Docusate Sodium (Colace) 100 mg Q12H PRN PO CONSTIPATION; Start 08/09/17 at 12: 30 Magnesium Hydroxide (Milk Of Mag) 30 ml DAILY PRN PO CONSTIPATION; Start at 12:30 Sodium Biphosphate/ Sodium Phosphate (Fleet Enema) 133 ml DAILY PRN [place] CONSTIPATION; Start 08/09/17 at 12:30 Pantoprazole (Protonix Tab) 40 mg DAILY@06 PO Last administered on 08/15/17 05 :35; Admin Dose 40 MG; Start 08/09/17 at 12:30 Heparin Sodium (Porcine) (Heparin (5000 Units/0.5 ml)) 5,000 unit Q12 SC Last administered on 08/10/17 22:57; Admin Dose 5,000 UNIT; Start 08/09/17 at 12:30 Lorazepam (Ativan) 0.5 mg Q6H PRN IV ANXIETY; Start 08/09/17 at 12:30 Hydralazine HCl (Apresoline) 10 mg Q6H PRN IV SBP GREATER THAN 180; Start 08/09 at 12:30 Nitroglycerin (Nitroglycerin (Sl Tab) 0.4 Mg) 1 tab Q5M PRN SL ANGINA; Start at 12:30 Miscellaneous Information 1 ea NOTE XX ; Start 08/09/17 at 12:30 Glucose (Glutose) 15 gm Q15M PRN PO DECREASED GLUCOSE; Start 08/09/17 at 12:30 Glucose (Glutose) 22.5 gm Q15M PRN PO DECREASED GLUCOSE; Start 08/09/17 at 12: 30 Dextrose (D50w Syringe) 25 ml Q15M PRN IV DECREASED GLUCOSE; Start 08/09/17 at 12:30 Dextrose (D50w Syringe) 50 ml Q15M PRN IV DECREASED GLUCOSE; Start 08/09/17 at 12:30 Glucagon (Glucagen) 1 mg Q15M PRN IM DECREASED GLUCOSE; Start 08/09/17 at 12:30 Glucose (Glutose) 15 gm Q15M PRN BUCCAL DECREASED GLUCOSE; Start 08/09/17 at 12 :30 Diagnostic Test (Pha) 1 ea 1 ea 02 XX Last administered on 08/11/17 02:22; Admin Dose 1 EA; Start 08/11/17 at 02:00 Levofloxacin/ Dextrose (Levaquin 750 Mg/ D5W 150 ml (Pmx)) 150 ml @ 100 mls/hr Q24H IVPB Last administered on 08/15/17 16:05; Admin Dose 100 MLS/HR; Start at 16:00 Insulin Glargine (Lantus) 26 unit DAILY@20 SC Last administered on 9/17/17at 20 :16; Admin Dose 26 UNIT; Start 08/14/17 at 20:00 Nicotine (Nicoderm 21 Mg/ 24hr) 1 patch DAILY TRANSDERM ; Start 08/14/17 at 18: 45 SUNSHINE FERRIS NP Aug 15, 2017 20:20
[2017-08-16] MEDS: ACCU-CHEK XX SCH (01:45)
[2017-08-16] MEDS: PANTOPRAZOLE (EC) 40 MG TAB PO SCH (05:43)
[2017-08-16 06:01] LABS: BASOPHIL # 0.1 10^3/ul (0.0-0.1); BASOPHILS % 0.8 % (0.0-2.0); EOSINOPHILS # 0.2 10^3/ul (0.0-0.5); EOSINOPHILS % 1.9 % (0.0-7.0); HEMATOCRIT 33.4 % (37.0-47.0); HEMOGLOBIN 10.4 g/dl (12.0-16.0); LYMPHOCYTES # 2.3 10^3/ul (0.8-2.9); LYMPHOCYTES % 24.5 % (15.0-51.0); MEAN CORPUSCULAR HEMOGLOBIN 25.4 pg (29.0-33.0); MEAN CORPUSCULAR HGB CONC 31.1 g/dl (32.0-37.0); MEAN CORPUSCULAR VOLUME 81.7 fl (82.0-101.0); MONOCYTE # 0.4 10^3/ul (0.3-0.9); MONOCYTES % 4.8 % (0.0-11.0); NEUTROPHIL # 6.2 10^3/ul (1.6-7.5); NEUTROPHILS % 67.5 % (39.0-77.0); PLATELET COUNT 627 10^3/UL (140-415); RED BLOOD COUNT 4.09 10^6/ul (4.20-5.40); RED CELL DISTRIBUTION WIDTH 12.4 % (11.5-14.5); WHITE BLOOD COUNT 9.3 10^3/ul (4.8-10.8)
[2017-08-16 06:34] LABS: CALCIUM 9.7 mg/dl (8.4-10.2); CREATININE 0.86 mg/dl (0.44-1.00); POTASSIUM 3.8 mmol/L (3.5-5.1)
[2017-08-16 07:18] VITALS: BP 113/77; RESP 18
[2017-08-16] MEDS: HEPARIN 5,000 UNIT/0.5 ML VIAL SC SCH (07:53)
[2017-08-16] MEDS: NICOTINE (21 MG/24 HR) PATCH TRANSDERM SCH (07:53)
[2017-08-16] MEDS: INSULIN ASPART [NOVOLOG] 3 ML PEN SC SCH ×4 (07:59→12:24)
--- NOTE | 2017-08-16 11:25 | PDOCDIS ---
Discharge Instructions CONDITION Patient Condition: Good HOME CARE INSTRUCTIONS: Special Diet: Low carb diet ACTIVITY: Activity Restrictions: Slowly Increase Activity FOLLOW UP/APPOINTMENTS Follow-up Plan Follow up with PCP in one week Follow up with ID as out-pt LOREN MELCHOR MD Aug 16, 2017 11:25
[2017-08-16] MEDS ORDERED: GLIP-160 PO (11:31)
[2017-08-16] MEDS ORDERED: HYDR-3498 PO (11:31)
[2017-08-16] MEDS ORDERED: NICO1PAT6 TRANSDERM (11:31)
[2017-08-16] MEDS ORDERED: MTF1000T PO (11:31)
[2017-08-16] MEDS ORDERED: LEVO500T72 PO (11:32)
--- NOTE | 2017-08-16 12:44 | CONS ---
Date/Time of Note Date/Time of Note DATE: 08/16/17 TIME: 12:42 Assessment/Plan Assessment/Plan Chief Complaint/Hosp Course SUBJECTIVE DATA: No acute changes overnight. Patient is sleeping, no fevers, nad MICROBIOLOGY: Blood and urine culture negative, fluid cx + Kleb, no anaerobes. DIAGNOSTICS: CT of the abdomen and pelvis on admission revealed lobulated enhancing fluid collection identified superior to the urinary bladder, concerning for infection/abscess with a urachal remnant. Recommend aspiration and drainage under CT guidance. Right-sided hydrosalpinx. ANTIMICROBIALS: Levaquin===> s/p Zithromax dose to cover STD, s/p Clindamycin and Zosyn. OBJECTIVE DATA: GENERAL: Well-developed, well-nourished, middle-aged woman, who is alert, in no distress. HEENT: Head atraumatic, normocephalic. Sclerae anicteric. Buccal mucosa dry. NECK: Supple. CHEST: Rise symmetrical. Breath sounds clear. HEART: S1, S2. ABDOMEN: Soft, with tenderness on palpation. Bowel sounds present. EXTREMITIES: Without cyanosis or edema. ASSESSMENT: 1. Abdominal pain secondary to right adnexal hydrosalpinx or parasalpinx==> s/p drainage cath. 2. Diabetes. 3. History of laparoscopic salpingectomy for ovarian torsion. 4. Status post drainage of pelvic abscess. PLAN: Patient remains stable, HOG C[employer] note reviewed, will change abx to PO Levaquin , ok dc on current abx for 2 weeks, add probiotics. Pt to f/u with HOG CUTTER outpatient Problems: Consultation Date/Type/Reason Admit Date/Time Aug 09, 2017 at 11:40 Type of Consultation: ID Exam/Review of Systems Vital Signs Vitals Vital Signs Date Time Temp Pulse Resp B/P Pulse Ox O2 Delivery O2 Flow Rate FiO2 08/16/17 07:18 97.3 78 18 113/77 98 08/13/17 19:05 Room Air Intake and Output 08/15/17 08/15/17 08/16/17 15:00 23:00 07:00 Intake Total 425 ml 970 ml 500 ml Output Total 0 ml 5 ml Balance 425 ml 965 ml 500 ml Results Result Diagram: 08/16/17 0528 08/16/17 0528 Results 24 hrs Laboratory Tests Test 08/15/17 13:51 08/15/17 17:06 08/15/17 20:11 08/16/17 05:28 Bedside Glucose 91 265 H 90 White Blood Count 9.3 Red Blood Count 4.09 L Hemoglobin 10.4 L Hematocrit 33.4 L Mean Corpuscular Volume 81.7 L Mean Corpuscular Hemoglobin 25.4 L Mean Corpuscular Hemoglobin Concent 31.1 L Red Cell Distribution Width 12.4 Platelet Count 627 H Mean Platelet Volume 9.0 Neutrophils % 67.5 Lymphocytes % 24.5 Monocytes % 4.8 Eosinophils % 1.9 Basophils % 0.8 Nucleated Red Blood Cells % 0.0 Neutrophils # 6.2 Lymphocytes # 2.3 Monocytes # 0.4 Eosinophils # 0.2 Basophils # 0.1 Nucleated Red Blood Cells # 0.0 Sodium Level 140 Potassium Level 3.8 Chloride Level 105 Carbon Dioxide Level 26 Anion Gap 13 Blood Urea Nitrogen 26 H Creatinine 0.86 Glucose Level 122 Calcium Level 9.7 Test 08/16/17 07:57 08/16/17 12:15 Bedside Glucose 113 92 Medications Medications Current Medications Ondansetron HCl (Zofran Inj) 4 mg Q6H PRN IV NAUSEA AND/OR VOMITING Last administered on 08/10/17 03:13; Admin Dose 4 MG; Start 08/09/17 at 12:30 Acetaminophen (Tylenol Tab) 650 mg Q6H PRN PO PAIN LEVEL 1-3 OR FEVER Last administered on 08/11/17 02:23; Admin Dose 650 MG; Start 08/09/17 at 12:30 Acetaminophen/ Hydrocodone Bitart ([place] (5/325)) 1 tab Q6H PRN PO MODERATE PAIN LEVEL 4-6 Last administered on 08/11/17 23:28; Admin Dose 1 TAB; Start 10/15 at 12:30 Morphine Sulfate (morphine) 2 mg Q4H PRN IV SEVERE PAIN LEVEL 7-10 Last administered on 08/11/17 19:36; Admin Dose 2 MG; Start 08/09/17 at 12:30 Docusate Sodium (Colace) 100 mg Q12H PRN PO CONSTIPATION; Start 08/09/17 at 12: 30 Magnesium Hydroxide (Milk Of Mag) 30 ml DAILY PRN PO CONSTIPATION; Start at 12:30 Sodium Biphosphate/ Sodium Phosphate (Fleet Enema) 133 ml DAILY PRN [place] CONSTIPATION; Start 08/09/17 at 12:30 Pantoprazole (Protonix Tab) 40 mg DAILY@06 PO Last administered on 08/16/17 05 :43; Admin Dose 40 MG; Start 08/09/17 at 12:30 Heparin Sodium (Porcine) (Heparin (5000 Units/0.5 ml)) 5,000 unit Q12 SC Last administered on 08/10/17 22:57; Admin Dose 5,000 UNIT; Start 08/09/17 at 12:30 Lorazepam (Ativan) 0.5 mg Q6H PRN IV ANXIETY; Start 08/09/17 at 12:30 Hydralazine HCl (Apresoline) 10 mg Q6H PRN IV SBP GREATER THAN 180; Start 08/09 at 12:30 Nitroglycerin (Nitroglycerin (Sl Tab) 0.4 Mg) 1 tab Q5M PRN SL ANGINA; Start at 12:30 Miscellaneous Information 1 ea NOTE XX ; Start 08/09/17 at 12:30 Glucose (Glutose) 15 gm Q15M PRN PO DECREASED GLUCOSE; Start 08/09/17 at 12:30 Glucose (Glutose) 22.5 gm Q15M PRN PO DECREASED GLUCOSE; Start 08/09/17 at 12: 30 Dextrose (D50w Syringe) 25 ml Q15M PRN IV DECREASED GLUCOSE; Start 08/09/17 at 12:30 Dextrose (D50w Syringe) 50 ml Q15M PRN IV DECREASED GLUCOSE; Start 08/09/17 at 12:30 Glucagon (Glucagen) 1 mg Q15M PRN IM DECREASED GLUCOSE; Start 08/09/17 at 12:30 Glucose (Glutose) 15 gm Q15M PRN BUCCAL DECREASED GLUCOSE; Start 08/09/17 at 12 :30 Diagnostic Test (Pha) 1 ea 1 ea 02 XX Last administered on 08/11/17 02:22; Admin Dose 1 EA; Start 08/11/17 at 02:00 Levofloxacin/ Dextrose (Levaquin 750 Mg/ D5W 150 ml (Pmx)) 150 ml @ 100 mls/hr Q24H IVPB Last administered on 08/15/17 16:05; Admin Dose 100 MLS/HR; Start at 16:00 Insulin Glargine (Lantus) 26 unit DAILY@20 SC Last administered on 08/15/17t 20 :16; Admin Dose 26 UNIT; Start 08/14/17 at 20:00 Nicotine (Nicoderm 21 Mg/ 24hr) 1 patch DAILY TRANSDERM ; Start 08/14/17 at 18: 45 CURT MCGOWAN NP Aug 16, 2017 12:44
--- NOTE | 2017-08-16 20:40 | DS ---
DATE OF ADMISSION: 08/09/2017 DATE OF DISCHARGE: 08/16/2017 ASSISTANT ACCOUNTING MANAGER: 1. Tony Townsend MD. 2. Devonte Ramos MD 3. Shivani Sargent MD 4. Gigi Watson MD 5. Interventional radiologist. PROCEDURE: CT guided pelvic abscess drainage on 08/10/2017. FINAL DIAGNOSES: 1. Pelvic pain likely secondary to right adnexa hydrosalpinx or pyosalpinx, status post CT-guided pelvic abscess drainage. 2. Right adnexal hydrosalpinx or pyosalpinx, status post CT- guided pelvic abscess drainage. FAMILY WORKER and Intervention Radiology consulted. Infectious disease doctor consulted. Culture was positive for Klebsiella. 3. Diabetic mellitus with hemoglobin A1c was 12.3, patient was discharged on metformin and glipizide. DISCHARGE MEDICATIONS: 1. [place]. 2. Levaquin. 3. Glipizide XL 5 mg. 4. Metformin 1000 mg by mouth twice a day. 5. Nicotine patch. ALLERGY: No known drug allergies. HOSPITAL COURSE: This pleasant 37-year-old female with past medical history of diabetes mellitus, prior ovarian torsion of fallopian tube, removal earlier this year, as well as incision infection in April, status post I and D at [facility] presented to [facility] secondary to having pelvic pain times 3 days. The patient was admitted on 08/09/2017, Infectious Disease doctor, FAMILY WORKER and Interventional Radiology were consulted. The patient was started on broad-spectrum IV antibiotics. CT of the abdomen was obtained which demonstrated a lobulated enhancing fluid collection superior to the urinary bladder concern for infection, abscess within the urachal remnant. As per FAMILY WORKER, Intervention Radiology was consulted for aspiration drainage under CT guidance. On 08/10/[address]-guided drainage of the abscess and has been continued on IV antibiotics. The Gram stain was positive for Klebsiella pneumonia and was sensitive to Cipro, gentamicin, Levaquin, and tobramycin. The patient has been seen and evaluated by Infectious Disease, blood culture has been negative. Urine culture showed mixed gram-negative, possibly contaminant. At this time the patient is awake, alert, oriented. Denies of any chest pain or shortness of breath. She is afebrile. LABS: Stable with a WBC 9.3, hemoglobin 10.4, hematocrit 32.4, and platelet 627. Sodium 140, potassium 3.8, chloride 105, bicarb 23, BUN 26, creatinine 0.8, glucose 122, calcium 9.7, as stated above. Her hemoglobin A1c was 12.2. PLAN: kick boxer has met with the patient and patient at this time is refusing to be on insulin, therefore she will be continued on higher dose of metformin 1000 mg and has been started on glipizide at time of discharge. DISCHARGE CONDITION: Condition at time of discharge is stable. DISCHARGE INSTRUCTIONS: Patient is still waiting for Infectious Disease doctor evaluation and recommendation prior to discharge. Dictated By: Willima Bernal MD /leah/guido /Document#: [id number]
[2017-08-16] MEDS ORDERED: L ACIDOPHIL/B LACTIS/B LONGUM CAPSULE PO SCH (21:00)
[2017-08-17] MEDS ORDERED: LEVOFLOXACIN 750 MG TABLET PO SCH (06:00)
== END 2017-08-16 15:30 | disposition home or self-care (01) | DRG 759 ==
LOC: FTE 04:16 → MS2 11:40
PROVIDERS: ADMIT Internal Medicine; ATTEND Internal Medicine
PROC: 0W9J30Z Drainage of Pelvic Cavity with Drainage Device, Percutaneous Approach (ICD-10-PCS; principal; 2017-08-10)
DX: N70.11 Chronic salpingitis (principal); B96.1 Klebsiella pneumoniae [K. pneumoniae] as the cause of diseases classified elsewhere; E11.9 Type 2 diabetes mellitus without complications; F17.210 Nicotine dependence, cigarettes, uncomplicated; N73.9 Female pelvic inflammatory disease, unspecified; Z90.79 Acquired absence of other genital organ(s); N83.201 Unspecified ovarian cyst, right side
CPT/HCPCS: 36415; 74177; 75989; 76830; 76856; 77012; 80048; 80053; 80061; 81001; 82962; 83036; 83690; 83735; 84100; 84439; 84443; 85025; 85610; 85730; 87040; 87070; 87075; 87081; 87086; 96361; 96372; 96374; 96375; 96376; J0456; J1200; J1644; J1815; J1956; J2270; J2405; J2543; J3010; J3475; J7030; J7050; Q9967

== ENCOUNTER 2018-06-11 02:47 | Emergency (ER) | END 2018-06-11 03:47 | disposition left against medical advice (07) ==